=== PATIENT | male | born 1955 | race Native Hawaiian/Other Pacific Islander ===

== ENCOUNTER → 2022-02-09 16:01 | Outpatient (CLI) | payer OTHER, MEDICAID, SELFPAY ==
--- NOTE | 2022-02-09 16:27 | DI.RAD.S_ITS ---
PROCEDURE: XR CHEST 2V INDICATIONS: productive cough TECHNIQUE: 2 views of the chest were acquired. Low lung volumes accentuate pulmonary interstitium and heart size. COMPARISON: None. FINDINGS: Surgical changes and devices: None. Lungs and pleura: Lungs are clear. No pleural effusions or pneumothorax. Mediastinum: Mediastinal contours are normal. Heart size is normal. Bones and chest wall: No suspicious bony abnormalities. Soft tissues appear unremarkable. IMPRESSION: Limited but otherwise unremarkable two view chest x-ray Approved by: Terry Horn M.D. on 02/09/2022 at 16:33
[2022-02-09 17:17] LABS: Influenza A - CEPHEID Flu A NEGATIVE (NEGATIVE); Influenza B - CEPHEID Flu B NEGATIVE (NEGATIVE)
[2022-02-09 17:47] LABS: COVID-19 CEPHEID PCR (VTM/NP) Negative (Negative)
== END ==
PROVIDERS: Visit Provider Student in an Organized Health Care Education/Training Program
DX: R05.8 Other specified cough (principal); R09.89 Other specified symptoms and signs involving the circulatory and respiratory systems
CPT/HCPCS: 0240U; 71046

== ENCOUNTER → 2022-03-18 14:52 | Outpatient (CLI) | payer OTHER, MEDICAID, SELFPAY ==
[2022-03-18 16:23] LABS: Influenza A - CEPHEID Flu A NEGATIVE (NEGATIVE); Influenza B - CEPHEID Flu B NEGATIVE (NEGATIVE); Respiratory Syncytial Virus Negative (Negative)
[2022-03-18 17:00] LABS: COVID-19 CEPHEID 4-PLEX PCR POSITIVE (Negative)
== END ==
PROVIDERS: Visit Provider Nurse Practitioner Family
DX: R05.9 Cough, unspecified (principal)
CPT/HCPCS: 0241U

== ENCOUNTER 2022-10-30 12:16 | Emergency (ER) | payer OTHER, MEDICAID, SELFPAY ==
[2022-10-30 12:37] VITALS: BP 153/94; PULSE 60; RESP 18; TEMP 36.7; O2SAT 99; BMI 32.3
--- NOTE | 2022-10-30 16:03 | PC.NURSE ---
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 The next day he had low back pain radiating into right leg. Today he states his right leg gave out because of the pain and he fell. States he may have hit his head when he fell, no tenderness to head, no loss of consciousness, is not on blood thinners. Reports some pain to right side of neck, tenderness to right trapezius muscle, no midline spine tenderness. Fast exam negative. No weakness or numbness to right leg. Ambulated without difficulty.
--- NOTE | 2022-10-30 16:18 | ED_ITS ---
HPI - Back Pain/Injury General Chief Complaint: Back Pain/Injury Stated Complaint: sent by [facility]/back pain/spasm causing falls Time Seen by Provider: 10/30/22 15:55 Source: patient History of Present Illness HPI Narrative: Patient is a 66-year-old healthy male without known past medical history presenting today with back pain. 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 He recently moved to and [place] as he does not have a primary care provider. 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 Was not too bad and then today or yesterday he slipped on the chair and his back got to be extreme pain. He feels like he has some tingling in his right leg maybe a little bit of weakness. He also feels like he slipped backwards hit his head but not really sure. Really complaining of some neck pain with some radiation on the right side as well. No loss of consciousness no nausea or vomiting. He is only taken Tylenol for pain. He was able to drive himself here. He was previously seen for similar things in the past. Related Data Previous Rx's Medication Instructions Recorded guaifenesin 100 mg/5 mL oral liquid 200 mg (10 mL) PO Q4H PRN cough 02/09/22 #1,000 mL albuterol sulfate 90 mcg/actuation 2 puff inhalation Q6H PRN 03/18/22 aerosol inhaler shortness of breath or wheezing #6.7 grams benzonatate 100 mg capsule 100 mg PO BID PRN cough #20 caps 03/18/22 inhalational spacing device #1 ea 03/18/22 (Aerochamber MV spacer) cyclobenzaprine 5 mg tablet 5 mg PO TID PRN muscle spasm #20 09/10/22 tabs diazepam 5 mg tablet (Valium) 5 mg PO Q12HR PRN muscle spasm #10 10/30/22 tabs hydrocodone 5 mg-acetaminophen 325 1 tab PO Q6H PRN pain #10 tabs 10/30/22 mg tablet Allergies Allergy/AdvReac Type Severity Reaction Status Date / Time No Known Drug Allergies Allergy Unverified 10/30/22 11:31 Review of Systems Review of Systems ROS Unobtainable: All systems reviewed & are unremarkable except as noted in HPI and below Patient History Social History Smoking Status: Never smoker Smoking Status: Never smoker alcohol intake frequency: 0-2 drinks per day Substance Use Type: does not use Exam Initial Vital Signs Initial Vital Signs: Vital Signs Temperature 98.0 F 10/30/22 12:37 Pulse Rate 60 10/30/22 12:37 Respiratory Rate 18 10/30/22 12:37 Blood Pressure 153/94 H 10/30/22 12:37 Pulse Oximetry 99 10/30/22 12:37 Oxygen Delivery Method Room Air 10/30/22 12:37 GENERAL: Alert very pleasant 66-year-old male hard of hearing HEENT: Head atraumatic,EOMI, pupils reactive, face symmetric, moist mucous membranes NECK: Midline vertebral tenderness C2-C3 also some paraspinal muscle tenderness no cervical collar CARDIOVASCULAR: Regular rate and rhythm without murmurs, rubs or gallops. RESPIRATORY: Breath sounds equal bilaterally, no wheezes rales or rhonchi. ABDOMEN: Soft, nontender. Normoactive bowel sounds all 4 quadrants. No guarding or rebound. EXTREMITIES: Normal range of motion, no clubbing or edema. Neurovascularly intact NEUROLOGICAL: Alert and oriented x4. SKIN: Warm, dry, no laceration, no petechiae, no rashes or lesions. Course Orders Ordered: ED Orders 10/30/22 16:29 CT cervical spine wo con Stat Discontinued Medications Diazepam (Diazepam 5 Mg Tablet) 5 mg PO NOW ONE Stop: 10/30/22 15:56 Last Admin: 10/30/22 16:33 Dose: Not Given Documented By: KOREY Ketorolac Tromethamine (Ketorolac 30 Mg/Ml Vial) 30 mg IM NOW ONE Stop: 10/30/22 15:56 Last Admin: 10/30/22 16:40 Dose: 30 mg Documented By: KOREY Vital Signs Vital signs: Vital Signs - 8 hr 10/30/22 12:37 10/30/22 17:47 Temperature 98.0 F Pulse Rate 60 62 Respiratory Rate 18 18 Blood Pressure 153/94 H 147/83 H Pulse Oximetry 99 98 Oxygen Delivery Method Room Air Room Air MDM - Back Pain/Injury Imaging Data CT - cervical spine: Radiologist's Impression: PROCEDURE:? CT CERVICAL SPINE WO CON ? INDICATIONS:? fall pain ? TECHNIQUE:? Noncontrast 3 mm thick sections acquired from the skull base to the T4 level.? Sagittal and coronal reformats were then constructed.? For radiation dose reduction, the following was used:? automated exposure control, adjustment of mA and/or kV according to patient size.? ? COMPARISON:? None. ? FINDINGS:? Image quality:? Good ? Bones:? Moderate to severe degenerative changes.? Ossification of the posterior longitudinal ligament.? No traumatic subluxation.? There is straightening of normal cervical lordosis.? There is lucency through the bridging ligamentous ossifications at C4-C5. ? Soft tissues:? Prevertebral soft tissues are normal thickness.? There is slight hyperdensity in the ventral epidural space at the level C1-C2 (5/47). ? ? IMPRESSION:? Moderate to severe degenerative changes.? Ossification of the PLL, as well as bridging calcifications of the ALL. ? No acute fracture or traumatic subluxation identified. ? Slight hyperdensity in the ventral epidural space at the level C1 or C2.? Differential includes a small epidural hematoma without mass effect. ? Lucency is also seen through to bridging ligamentous ossifications at C4-C5, possibly chronic.? ? If there is sufficient clinical concern, consider MRI to evaluate the above findings. ? Dictated by: Thad Camp M.D. on 10/30/2022 at 17:05 ? ? [facility] Narrative Medical decision making narrative: Patient 66-year-old male overall healthy but has not been to a primary care provider presenting today with musculoskeletal like pain. Initially started lifting someone out of the water and then slipped making back pain even worse. He is very tender in his neck midline with decreased range of motion. CT of the cervical spine is negative. No need for head injury not having head injury symptoms not on any anticoagulation or platelet medication. He is given Toradol here in the ED. He did drive himself will prescribe him muscle relaxers and hydrocodone to go. Discharge Plan Departure Patient Disposition: Home Clinical Impression: Acute back pain with sciatica, Cervical muscle strain Instructions: DI for Whiplash, DI for Back Strain or Sprain Activity Restrictions/Additional Instructions: *You have been diagnosed with back pain with sciatica, cervical strain *What to do: At this time increase activity as tolerated. Light stretching minor activity no strenuous activity no heavy lifting. May require outpatient physical therapy and/or outpatient MRI *Continue to take medications as directed--> [facility] Motrin 600 mg every 6 hours if needed for bnoi-bj-hoeaynhs pain [place] 1 tablet every 6 hours if needed for severe pain Valium 5 mg every 12 hours if needed for muscle spasm *Follow up with your primary care provider in 2-3 days or call [phone] *Return to ER if you should have increased pain weakness loss of urine or any new, worsening or concerning symptoms Prescriptions: New hydrocodone-acetaminophen 5-325 mg tablet 1 tab PO Q6H PRN (Reason: pain) Qty: 10 0RF diazepam [Valium] 5 mg tablet 5 mg PO Q12HR PRN (Reason: muscle spasm) Qty: 10 0RF No Action cyclobenzaprine 5 mg tablet 5 mg PO TID PRN (Reason: muscle spasm) Qty: 20 0RF guaifenesin 100 mg/5 mL liquid 200 mg PO Q4H PRN (Reason: cough) Qty: 1000 0RF (DME) Aerochamber MV Spacer See Rx Instructions .ROUTE .MEDSUPPLY Qty: 1 0RF Rx Instructions: As directed albuterol sulfate 90 mcg/actuation HFA aerosol inhaler 2 puff inhalation Q6H PRN (Reason: shortness of breath or wheezing) Qty: 6.7 0RF benzonatate 100 mg capsule 100 mg PO BID PRN (Reason: cough) Qty: 20 0RF Referrals: Miscellaneous,Doctor, MD [Primary Care Provider] - Stand Alone Forms: Patient Portal/API, Work Release Note
--- NOTE | 2022-10-30 16:29 | DI.CT.S_ITS ---
PROCEDURE: CT CERVICAL SPINE WO CON INDICATIONS: fall pain TECHNIQUE: Noncontrast 3 mm thick sections acquired from the skull base to the T4 level. Sagittal and coronal reformats were then constructed. For radiation dose reduction, the following was used: automated exposure control, adjustment of mA and/or kV according to patient size. COMPARISON: None. FINDINGS: Image quality: Good Bones: Moderate to severe degenerative changes. Ossification of the posterior longitudinal ligament. No traumatic subluxation. There is straightening of normal cervical lordosis. There is lucency through the bridging ligamentous ossifications at C4-C5. Soft tissues: Prevertebral soft tissues are normal thickness. There is slight hyperdensity in the ventral epidural space at the level C1-C2 (5/47). IMPRESSION: Moderate to severe degenerative changes. Ossification of the PLL, as well as bridging calcifications of the ALL. No acute fracture or traumatic subluxation identified. Slight hyperdensity in the ventral epidural space at the level C1 or C2. Differential includes a small epidural hematoma without mass effect. Lucency is also seen through to bridging ligamentous ossifications at C4-C5, possibly chronic. If there is sufficient clinical concern, consider MRI to evaluate the above findings. Dictated by: Thad Camp M.D. on 10/30/2022 at 17:05 Approved by: Thad Camp M.D. on 10/30/2022 at 17:12
[2022-10-30] MEDS: KETOROLAC 30 MG/ML VIAL IM (16:40)
[2022-10-30 17:47] VITALS: BP 147/83; PULSE 62; RESP 18; O2SAT 98
== END 2022-10-30 17:47 | disposition home or self-care (01) ==
PROVIDERS: Emergency Provider Emergency Medicine
DX: M54.41 Lumbago with sciatica, right side (principal); S16.1XXA Strain of muscle, fascia and tendon at neck level, initial encounter; W01.0XXA Fall on same level from slipping, tripping and stumbling without subsequent striking against object, initial encounter
CPT/HCPCS: 72125; 96372; 99283; 99284; J1885

== ENCOUNTER 2022-11-10 13:23 | Emergency (ER) | payer OTHER, SELFPAY ==
[2022-11-10 13:26] VITALS: BP 129/92; PULSE 96; RESP 16; TEMP 36.2; O2SAT 98; BMI 32.3
--- NOTE | 2022-11-10 13:35 | PC.NURSE ---
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 States the pain isn't getting worse, but its not gotten any better. Reports pain in middle lower back radiates down right leg. When the pain increases his right leg gives out and he has almost fallen due to thing. Denies incontinence. Reports best pain relief when he brings his knees up to chest while lying down.
--- NOTE | 2022-11-10 13:39 | DI.MRI.S_ITS ---
PROCEDURE: MR CERVICAL SPINE WO CON INDICATIONS: Right leg numbness, worsening cervical spine pain TECHNIQUE: Noncontrast sagittal T1 spin echo and T2 fast spin echo, sagittal STIR, foraminal oblique sagittal T2 fast spin echo, and axial gradient echo or T2 fast spin echo through the cervical spine. COMPARISON: [facility], MR, MR LUMBAR SPINE WO CON, 11/10/2022, 14:34. [facility], CT, CT CERVICAL SPINE WO CON, 10/30/2022, 16:48. FINDINGS: Image quality: This examination is limited by involuntary motion artifact. Alignment and Curvature: There is normal bony alignment. Bone Marrow: Marrow demonstrates normal overall signal. Spinal Cord: Visualized spinal cord has normal size and signal. No cerebellar tonsillar herniation. Paraspinous Soft Tissues: No paravertebral masses. Prevertebral soft tissues are normal in thickness. C2-C3: Mild loss of disc height is seen. Loss of disc signal is seen. A mild degree of generalized disc osteophyte complex is seen. There is mild right-sided and at least moderate left-sided facet hypertrophy. There is moderate to severe left-sided and moderate right-sided neural foraminal narrowing. Mild to moderate central canal narrowing is seen, with minimal associated mass effect upon the ventral spinal cord. C3-C4: A degree of bony vertebral body fusion can be seen at this level. Moderate generalized disc osteophyte complex is seen. Moderate facet joint hypertrophy is seen. There is moderate right-sided and moderate to severe left-sided neural foraminal narrowing. Moderate central canal narrowing is seen. There is associated mass effect upon the ventral spinal cord. C4-C5: Vfdd-aw-dwkhdipy loss of disc height and disc signal can be seen. At least moderate disc osteophyte complex is seen, which is eccentric to the right. There is at least moderate right-sided and mild left-sided neural foraminal narrowing. There is moderate to severe right-sided and at least moderate left-sided neural foraminal narrowing. Mild to moderate central canal narrowing is seen. There is associated mass effect upon the ventral spinal cord. C5-C6: Mild loss of disc height is seen. Loss of disc signal is seen. A mild to moderate degree of generalized disc osteophyte complex is seen. There is akwh-fa-axbuoace right-sided and moderate left-sided facet hypertrophy. There is moderate left-sided and minimal right-sided neural foraminal narrowing. Moderate central canal narrowing is seen. There is associated mass effect upon the ventral spinal cord. C6-C7: Mild loss of disc height is seen. Loss of disc signal is seen. A mild degree of generalized disc osteophyte complex is seen. Mild to moderate facet hypertrophy is seen. Moderate bilateral neural foraminal narrowing is seen. Mild central canal narrowing is seen. C7-T1: The disc height and disk signal are relatively well-preserved. A mild degree of generalized disc osteophyte complex is seen. Mild facet joint hypertrophy is seen. Moderate bilateral neural foraminal narrowing is seen. Mild central canal narrowing is seen. IMPRESSION: Multiple levels of cervical spine degenerative change can be seen, which are overall worst at C4-C5 and C5-C6. A degree vertebral body fusion is seen at the C3-C4 level, which is better demonstrated by CT. Dictated by: Florian Chang M.D. on 11/10/2022 at 13:54 Approved by: Florian Chang M.D. on 11/10/2022 at 13:59
--- NOTE | 2022-11-10 13:45 | DI.MRI.S_ITS ---
PROCEDURE: MR LUMBAR SPINE WO CON INDICATIONS: Worsening low back pain with right-sided sciatica TECHNIQUE: Noncontrast sagittal T1 spin echo and T2 fast echo, sagittal STIR, and T2 fast spin echo through the lumbar spine. In cases with scoliosis, additional coronal T2 fast spin echo may be performed. COMPARISON: [facility], MR, MR CERVICAL SPINE WO CON, 11/10/2022, 14:20. FINDINGS: Image quality: Excellent. Alignment and Curvature: There is normal bony alignment. Bone Marrow: Marrow is of normal overall signal. No acute vertebral body compression fractures. Spinal Cord: Conus medullaris terminates at the L1 level. Visualized cord demonstrates normal signal and size. Paraspinous Soft Tissues: No paravertebral masses. T12-L1: Normal appearance. L1-L2: The disc height and disk signal are relatively well-preserved. Mild generalized disc bulge is seen. Moderate facet joint hypertrophy is seen. Moderate bilateral neural foraminal narrowing is seen. Mild central canal narrowing is seen. L2-L3: The disc height and disk signal are relatively well-preserved. Mild to moderate disc bulge is seen. Moderate facet joint hypertrophy is seen. Moderate bilateral neural foraminal narrowing is seen. Moderate central canal narrowing is seen. L3-L4: The disc height is well-preserved. Loss of disc signal is seen at this level. Moderate generalized disc bulge is seen. There is a superimposed central disc protrusion. Mild facet joint hypertrophy is seen. There is at least moderate bilateral neural foraminal narrowing seen. Mild to moderate central canal narrowing is seen. L4-L5: Mild loss of disc height is seen. Loss of disc signal is seen. Moderate generalized disc bulge is seen. There is a superimposed central disc protrusion. Moderate to prominent facet hypertrophy is seen at this level. There is moderate to severe bilateral neural foraminal narrowing seen, with an associated a degree of compression seen upon the exiting nerve roots. Moderate central canal narrowing is seen. L5-S1: Moderate loss of disc height is seen. Loss of disc signal is seen. Moderate disc bulge is seen, which is eccentric to the right. Mild to moderate facet hypertrophy is seen. At least moderate bilateral neural foraminal narrowing can be seen. There is a degree of compression seen upon the exiting nerve roots. Mild central canal narrowing is seen. IMPRESSION: Multiple levels of lumbar spine degenerative change can be seen, which are worst inferiorly. Dictated by: Florian Chang M.D. on 11/10/2022 at 13:59 Approved by: Florian Chang M.D. on 11/10/2022 at 14:01
--- NOTE | 2022-11-10 13:46 | ED.BACK ---
HPI - Back Pain/Injury <Ame Lujan, [facility] - Last Filed: 11/10/22 15:33> General Chief Complaint: Back Pain/Injury Stated Complaint: back spasm T-14 Time Seen by Provider: 11/10/22 13:36 Source: patient History of Present Illness HPI Narrative: This is 67-year-old gentleman who presents to the emergency department complaining of worsening low back pain, neck pain and right-sided sciatica since his initial visit to the walk-in clinic and emergency department on 10/30/2022. Patient presented to the walk-in clinic initially for right leg weakness, was sent to the emergency department and was evaluated there and had tenderness along his cervical spine and lower back. He had a CT without contrast of his cervical spine showing moderate to severe degenerative changes, ossification of the PLL as well as calcification of the a LLL, no acute fracture, slight hyperdensity in the ventral epidural space at C1/C2, patient has a traumatic and the differential for the CT scan reported small epidural hematoma with mass effect. Lucency was seen through the bridging ligamentous ossification C4-5 and is probably chronic. Patient complains of worsened pain primarily in his low back with right-sided sciatica with tenderness along his midline lumbar spine. Denies fever, chills, history of IV substance abuse. Patient was treated with Toradol and Valium, did not take any steroids. He complains of neck pain with some radiation on the right side as well.? No recent trauma, states that he slipped and had some acute pain but did not fall down or have any impact. He is only taking Tylenol for pain.? He was able to drive himself here.? 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 Related Data Previous Rx's Medication Instructions Recorded guaifenesin 100 mg/5 mL oral liquid 200 mg (10 mL) PO Q4H PRN cough 02/09/22 #1,000 mL albuterol sulfate 90 mcg/actuation 2 puff inhalation Q6H PRN 03/18/22 aerosol inhaler shortness of breath or wheezing #6.7 grams benzonatate 100 mg capsule 100 mg PO BID PRN cough #20 caps 03/18/22 inhalational spacing device #1 ea 03/18/22 (Aerochamber MV spacer) cyclobenzaprine 5 mg tablet 5 mg PO TID PRN muscle spasm #20 09/10/22 tabs diazepam 5 mg tablet (Valium) 5 mg PO Q12HR PRN muscle spasm #10 10/30/22 tabs hydrocodone 5 mg-acetaminophen 325 1 tab PO Q6H PRN pain #10 tabs 10/30/22 mg tablet gabapentin 100 mg capsule 100 mg PO BEDTIME PRN nerve pain 11/10/22 #14 caps hydrocodone 5 mg-acetaminophen 325 1 tab PO Q6H PRN pain #14 tabs 11/10/22 mg tablet lidocaine 5 % topical patch 1 patch topical DAILY #30 ea 11/10/22 (Lidoderm) methocarbamol 500 mg tablet 500 mg PO BID PRN muscle spasm #20 11/10/22 tabs methylprednisolone 4 mg tablets in See Rx Instructions PO .COMPLEX 11/10/22 a dose pack (Medrol (Kobe)) #21 ea Allergies Allergy/AdvReac Type Severity Reaction Status Date / Time No Known Drug Allergies Allergy Verified 11/10/22 13:26 Review of Systems <LAM Saunders - Last Filed: 11/10/22 15:33> Review of Systems ROS Unobtainable: All systems reviewed & are unremarkable except as noted in HPI and below Patient History <LAM Saunders - Last Filed: 11/10/22 15:33> Social History Smoking Status: Never smoker Smoking Status: Never smoker alcohol intake frequency: 0-2 drinks per day Substance Use Type: does not use Exam <LAM Saunders - Last Filed: 11/10/22 15:33> Narrative Exam Narrative: Reviewed vitals signs and nursing notes. General: Pleasant, sitting upright appears uncomfortable, well groomed, afebrile HEENT: symmetrical facial expressions, moist mucous membranes, neck is supple CV: regular rate and rhythm, warm extremities Respiratory: normal work of breathing, without tachypnea or hypoxia. GI: abdomen soft, nondistended, without CVA tenderness bilaterally. MSK: moves all extremities, no weakness, normal tone, ambulatory without deficit, left leg lift exacerbates low back pain, right leg lift exacerbates low back pain, right-sided sciatica symptoms present, no measured weakness on my exam bilaterally, patient has midline tenderness his mid lumbar spine and reports right-sided sciatica, reflexes are intact without sensory weakness, no grown paresthesia Skin: brisk capillary refill, without rash or wound Neuro: clear speech and normal cognition, A&O x3, GCS 15, no focal motor or sensation deficits Initial Vital Signs Initial Vital Signs: Vital Signs Temperature 97.1 F L 11/10/22 13:26 Pulse Rate 96 H 11/10/22 13:26 Respiratory Rate 16 11/10/22 13:26 Blood Pressure 129/92 H 11/10/22 13:26 Pulse Oximetry 98 11/10/22 13:26 Oxygen Delivery Method Room Air 11/10/22 13:26 <Ginger Bello DO - Last Filed: 11/13/22 19:38> Initial Vital Signs Initial Vital Signs: Vital Signs Temperature 97.1 F L 11/10/22 13:26 Pulse Rate 96 H 11/10/22 13:26 Respiratory Rate 16 11/10/22 13:26 Blood Pressure 129/92 H 11/10/22 13:26 Pulse Oximetry 98 11/10/22 13:26 Oxygen Delivery Method Room Air 11/10/22 13:26 Course <LAM Saunders - Last Filed: 11/10/22 15:33> Orders Ordered: Discontinued Medications Ketorolac Tromethamine (Ketorolac 30 Mg/Ml Vial) 30 mg IM NOW ONE Stop: 11/10/22 13:46 Last Admin: 11/10/22 13:53 Dose: 30 mg Documented By: DANNI Methocarbamol (Methocarbamol 500 Mg Tablet) 500 mg PO NOW ONE Stop: 11/10/22 13:46 Last Admin: 11/10/22 13:54 Dose: 500 mg Documented By: DANNI Pantoprazole Sodium (Pantoprazole Dr 20 Mg Tablet) 20 mg PO NOW ONE Stop: 11/10/22 13:49 Last Admin: 11/10/22 13:54 Dose: 20 mg Documented By: DANNI Prednisone (Prednisone 20 Mg Tablet) 40 mg PO NOW ONE Stop: 11/10/22 13:49 Last Admin: 11/10/22 13:54 Dose: 40 mg Documented By: DANNI Vital Signs Vital signs: Vital Signs - 8 hr 11/10/22 13:26 Temperature 97.1 F L Pulse Rate 96 H Respiratory Rate 16 Blood Pressure 129/92 H Pulse Oximetry 98 Oxygen Delivery Method Room Air <Ginger Bello DO - Last Filed: 11/13/22 19:38> Orders Ordered: Discontinued Medications Ketorolac Tromethamine (Ketorolac 30 Mg/Ml Vial) 30 mg IM NOW ONE Stop: 11/10/22 13:46 Last Admin: 11/10/22 13:53 Dose: 30 mg Documented By: DANNI Methocarbamol (Methocarbamol 500 Mg Tablet) 500 mg PO NOW ONE Stop: 11/10/22 13:46 Last Admin: 11/10/22 13:54 Dose: 500 mg Documented By: DANNI Pantoprazole Sodium (Pantoprazole Dr 20 Mg Tablet) 20 mg PO NOW ONE Stop: 11/10/22 13:49 Last Admin: 11/10/22 13:54 Dose: 20 mg Documented By: DANNI Prednisone (Prednisone 20 Mg Tablet) 40 mg PO NOW ONE Stop: 11/10/22 13:49 Last Admin: 11/10/22 13:54 Dose: 40 mg Documented By: DANNI Vital Signs Vital signs: Vital Signs - 8 hr 11/10/22 13:26 Temperature 97.1 F L Pulse Rate 96 H Respiratory Rate 16 Blood Pressure 129/92 H Pulse Oximetry 98 Oxygen Delivery Method Room Air MDM - Back Pain/Injury <Ame Lujan [facility] - Last Filed: 11/10/22 15:33> Imaging Data MR cervical spine WO contrast: Radiologist's Impression: PROCEDURE:? MR CERVICAL SPINE WO CON ? INDICATIONS:? Right leg numbness, worsening cervical spine pain ? TECHNIQUE:? Noncontrast sagittal T1 spin echo and T2 fast spin echo, sagittal STIR, foraminal oblique sagittal T2 fast spin echo, and axial gradient echo or T2 fast spin echo through the cervical spine.? ? COMPARISON:? [facility], MR, MR LUMBAR SPINE WO CON, 11/10/2022, 14:34.? [facility], CT, CT CERVICAL SPINE WO CON, 10/30/2022, 16:48. ? FINDINGS:? Image quality:? This examination is limited by involuntary motion artifact.? ? Alignment and Curvature:? There is normal bony alignment.? ? Bone Marrow:? Marrow demonstrates normal overall signal.? ? Spinal Cord:? Visualized spinal cord has normal size and signal.? No cerebellar tonsillar herniation.? ? Paraspinous Soft Tissues:? No paravertebral masses.? Prevertebral soft tissues are normal in thickness.? ? C2-C3:? Mild loss of disc height is seen. Loss of disc signal is seen.? A mild degree of generalized disc osteophyte complex is seen.? There is mild right-sided and at least moderate left-sided facet hypertrophy.? There is moderate to severe left-sided and moderate right-sided neural foraminal narrowing.? Mild to moderate central canal narrowing is seen, with minimal associated mass effect upon the ventral spinal cord. ? C3-C4:? A degree of bony vertebral body fusion can be seen at this level. Moderate generalized disc osteophyte complex is seen.? Moderate facet joint hypertrophy is seen.? There is moderate right-sided and moderate to severe left-sided neural foraminal narrowing. Moderate central canal narrowing is seen.? There is associated mass effect upon the ventral spinal cord.? ? C4-C5:? [id number] loss of disc height and disc signal can be seen.? At least moderate disc osteophyte complex is seen, which is eccentric to the right.? There is at least moderate right-sided and mild left-sided neural foraminal narrowing.? There is moderate to severe right-sided and at least moderate left-sided neural foraminal narrowing.? Mild to moderate central canal narrowing is seen. There is associated mass effect upon the ventral spinal cord.? ? C5-C6:? Mild loss of disc height is seen. Loss of disc signal is seen.? A mild to moderate degree of generalized disc osteophyte complex is seen.? There is [id number] right-sided and moderate left-sided facet hypertrophy.? There is moderate left-sided and minimal right-sided neural foraminal narrowing. Moderate central canal narrowing is seen.? There is associated mass effect upon the ventral spinal cord.? ? C6-C7:? Mild loss of disc height is seen. Loss of disc signal is seen.? A mild degree of generalized disc osteophyte complex is seen.? Mild to moderate facet hypertrophy is seen. ?Moderate bilateral neural foraminal narrowing is seen.? Mild central canal narrowing is seen.? ? C7-T1:? The disc height and disk signal are relatively well-preserved.? A mild degree of generalized disc osteophyte complex is seen.? Mild facet joint hypertrophy is seen. Moderate bilateral neural foraminal narrowing is seen.? Mild central canal narrowing is seen.? ? IMPRESSION:? Multiple levels of cervical spine degenerative change can be seen, which are overall worst at C4-C5 and C5-C6. ? A degree vertebral body fusion is seen at the C3-C4 level, which is better demonstrated by CT. ? ? Dictated by: Florian Chang M.D. on 11/10/2022 at 13:54 ? ? Approved by: Florian Chang M.D. on 11/10/2022 at 13:59 ? MR Lumbar spine WO contrast: Radiologist's Impression: PROCEDURE:? MR LUMBAR SPINE WO CON ? INDICATIONS:? Worsening low back pain with right-sided sciatica ? TECHNIQUE:? Noncontrast sagittal T1 spin echo and T2 fast echo, sagittal STIR, and T2 fast spin echo through the lumbar spine.? In cases with scoliosis, additional coronal T2 fast spin echo may be performed.? ? COMPARISON:? [facility], , MR CERVICAL SPINE WO CON, 11/10/2022, 14:20. ? FINDINGS:? Image quality:? Excellent.? ? Alignment and Curvature:? There is normal bony alignment.? ? Bone Marrow:? Marrow is of normal overall signal.? No acute vertebral body compression fractures.? ? Spinal Cord:? Conus medullaris terminates at the L1 level.? Visualized cord demonstrates normal signal and size.? ? Paraspinous Soft Tissues:? No paravertebral masses.? ? T12-L1:? Normal appearance.? ? L1-L2:? The disc height and disk signal are relatively well-preserved.? Mild generalized disc bulge is seen.? Moderate facet joint hypertrophy is seen. Moderate bilateral neural foraminal narrowing is seen.? Mild central canal narrowing is seen.? ? L2-L3:? The disc height and disk signal are relatively well-preserved.? Mild to moderate disc bulge is seen. Moderate facet joint hypertrophy is seen. Moderate bilateral neural foraminal narrowing is seen.? Moderate central canal narrowing is seen.? ? L3-L4:? The disc height is well-preserved.? Loss of disc signal is seen at this level.? Moderate generalized disc bulge is seen. There is a superimposed central disc protrusion. ? Mild facet joint hypertrophy is seen.? There is at least moderate bilateral neural foraminal narrowing seen.? Mild to moderate central canal narrowing is seen. ? L4-L5:? Mild loss of disc height is seen. Loss of disc signal is seen.? Moderate generalized disc bulge is seen. There is a superimposed central disc protrusion. ? Moderate to prominent facet hypertrophy is seen at this level. There is moderate to severe bilateral neural foraminal narrowing seen, with an associated a degree of compression seen upon the exiting nerve roots. Moderate central canal narrowing is seen.? ? ? L5-S1:? Moderate loss of disc height is seen.? Loss of disc signal is seen.? Moderate disc bulge is seen, which is eccentric to the right.? Mild to moderate facet hypertrophy is seen.? At least moderate bilateral neural foraminal narrowing can be seen. There is a degree of compression seen upon the exiting nerve roots.? Mild central canal narrowing is seen.? ? ? IMPRESSION:? Multiple levels of lumbar spine degenerative change can be seen, which are worst inferiorly. ? ? Dictated by: Florian Chang M.D. on 11/10/2022 at 13:59 ? ? Approved by: Florian Chang M.D. on 11/10/2022 at 14:01 ? MDM Narrative Medical decision making narrative: Chief Complaint: low back pain Differential diagnoses considered but not limited to: disc injury/herniation, radiculopathy, muscular strain, epidural abscess, malignancy, spondyloarthropathy, acute fracture, urinary tract infection, osteoarthritis, degenerative disc disease, cauda equina, osteomyelitis, spinal stenosis, ligamental injury. I have reviewed the patient's vital signs and nursing notes as well as prior records if available. Prior Charts reviewed: Emergency department visit from 10/30/2022 as well as the walk-in clinic visit from 10/30/2022 for right leg weakness My interpretation of Imaging: Cervical spine imaging as above from previous visit, today MR of both lumbar and cervical spine due to subjective right-sided weakness and pain Course of care: Ordered MR of his cervical and lumbar spine, pain was treated with prednisone, Toradol, methocarbamol [address] scan, given warm blanket for low back pain and reports feeling much better with this there, he was medicated prior to going 1500 patient reports feeling much better. Suspect likely musculoskeletal etiology and acute exacerbation of chronic low back pain. Patient's straight leg raise test was positive. No back pain red flags on history or physical. No history of IV substance use, or bony tenderness to palpation, no trauma, no bony tenderness to palpation, and are afebrile. No bowel or urinary incontinence or retention, no saddle anesthesia, no new/worsening distal weakness, decreased reflexes or foot drop. Pt is nontoxic appearing. Patient has soft tissue tenderness to palpation. Pt is neurovascularly intact distally, without decreased reflexes or strength, and without immunosuppression or evidence of infection, peritoneal signs, hypertensive crisis, incontinence, or meningeal signs. And I paperwork was completed, he requests 2 weeks off of work due to inability to lift heavy equipment in his pain is still severe. I encouraged him to follow-up with orthopedics in the next week for follow-up on his MRIs and for a referral to physical therapy and or ongoing treatment for his low back abnormality. His L and I claim number is [id number]. Patient's symptoms improved over duration of stay with above-stated therapies. Discharge diagnosis, return precautions and plan discussed with patient followed by verbalization of understanding. Social considerations that may affect disposition: none Questions are addressed and there is agreement with the plan and for follow-up with PCP and with Orthopedics for outpatient physical therapy and advanced imaging if indicated. Patient is appropriate for outpatient management. MIPS: This encounter doesn't have any diagnosis' associated with MIPS criteria. Discharge Plan Departure Patient Disposition: Home Clinical Impression: Work related injury, Central stenosis of spinal canal, Compression of lumbar nerve root Acute back pain with sciatica Qualifiers: Laterality: right Qualified Code(s): M54.41 - Lumbago with sciatica, right side Degenerative disk disease Qualifiers: Spinal region: lumbar Qualified Code(s): M51.36 - Other intervertebral disc degeneration, lumbar region Instructions: DI for Back Pain With Sciatica Activity Restrictions/Additional Instructions: *You have been diagnosed with degenerative disc disease of your lumbar and cervical spine with arthritis, nerve root compression and disc bulge of the lower back disc causing narrowing and compression on the nerve roots. This causes a lot of pain. Please use the steroid to decrease this inflammation of the nerve root which will help with pain, use ibuprofen every 6 hours with food and water as tolerated, use Tums as needed to help coat your stomach. Please take a pain pill as needed for your pain but do not drive afterwards, for muscle spasm and tightening, please take a muscle relaxer which can be helpful for that. I have given you gabapentin which you can take at nighttime to help with the nerve pain. Try to avoid extra physical activity and gradually move your body to prevent become stiff. Please schedule follow-up with orthopedics at [facility] for evaluation of your low back pain with your MRI results. Ask for the soonest available appointment for follow-up from the emergency department after your MRIs. Hope that you start feeling better soon, return to the emergency department for new or worsening pain or mobilities concerns. If you are unable to void or if you have incontinence, if you are unable to have bowel movement, or any other new weakness or other abnormality please come back to emergency department. *What to do: *Please continue to take your regular medications as directed. [X ] New medication prescriptions sent to your pharmacy: [ ] [ ] New medication written as a paper prescription [ ] No new medications given *Please call and schedule follow up with your primary care provider in 2-3 days, at least for an update. Let them know you were seen in the Emergency Department for the above problem. We will electronically transmit a record of today's note if your PCP or specialist is in our system. *If you do not have a primary care provider please contact [phone] to establish care with one of the [facility] primary care providers. *Return to the Emergency Department for worsening symptoms, inability to keep liquids down, fever greater than 101F, chills, or other concerning symptom. Prescriptions: New methylprednisolone [Medrol (Kobe)] 4 mg tablets,dose pack See Rx Instructions .ROUTE .COMPLEX Qty: 21 0RF Rx Instructions: orally per package directions hydrocodone-acetaminophen 5-325 mg tablet 1 tab PO Q6H PRN (Reason: pain) Qty: 14 0RF gabapentin 100 mg capsule 100 mg PO BEDTIME PRN (Reason: nerve pain) Qty: 14 0RF lidocaine [Lidoderm] 5 % adhesive patch,medicated 1 patch topical DAILY Qty: 30 0RF Rx Instructions: leave on most painful area for up to 12 hrs methocarbamol 500 mg tablet 500 mg PO BID PRN (Reason: muscle spasm) Qty: 20 0RF No Action cyclobenzaprine 5 mg tablet 5 mg PO TID PRN (Reason: muscle spasm) Qty: 20 0RF guaifenesin 100 mg/5 mL liquid 200 mg PO Q4H PRN (Reason: cough) Qty: 1000 0RF (DME) Aerochamber MV Spacer See Rx Instructions .ROUTE .MEDSUPPLY Qty: 1 0RF Rx Instructions: As directed albuterol sulfate 90 mcg/actuation HFA aerosol inhaler 2 puff inhalation Q6H PRN (Reason: shortness of breath or wheezing) Qty: 6.7 0RF benzonatate 100 mg capsule 100 mg PO BID PRN (Reason: cough) Qty: 20 0RF hydrocodone-acetaminophen 5-325 mg tablet 1 tab PO Q6H PRN (Reason: pain) Qty: 10 0RF diazepam [Valium] 5 mg tablet 5 mg PO Q12HR PRN (Reason: muscle spasm) Qty: 10 0RF Referrals: [facility] [Provider Group] Grover Hogan DO [Physician] - Stand Alone Forms: Patient Portal/API, Work Release Note <Ginger Bello DO - Last Filed: 11/13/22 19:38> Cosign ED Attending Cosbarature Attestation: I was immediately available in the department for consultation. Documentation has been reviewed.
[2022-11-10] MEDS: KETOROLAC 30 MG/ML VIAL IM (13:53)
[2022-11-10] MEDS: PANTOPRAZOLE DR 20 MG TABLET PO (13:54)
[2022-11-10] MEDS: methocarbamoL 500 MG TABLET PO (13:54)
[2022-11-10] MEDS: predniSONE 20 MG TABLET 40 MG PO (13:54)
[2022-11-10 15:43] VITALS: BP 125/77; PULSE 87; O2SAT 97
== END 2022-11-10 15:50 | disposition home or self-care (01) ==
PROVIDERS: Emergency Provider Nurse Practitioner Critical Care Medicine
DX: M51.36 Other intervertebral disc degeneration, lumbar region (principal); M48.061 Spinal stenosis, lumbar region without neurogenic claudication; M50.30 Other cervical disc degeneration, unspecified cervical region; M51.26 Other intervertebral disc displacement, lumbar region; M54.41 Lumbago with sciatica, right side; Y99.0 Civilian activity done for income or pay
CPT/HCPCS: 72141; 72148; 96372; 99283; 99284; J1885

== ENCOUNTER → 2022-12-29 11:02 | Outpatient (CLI) | payer SELFPAY ==
[2022-12-29 12:53] LABS: Hemoglobin A1C% w Est Avg Glu 5.8 % (4.0-6.0)
[2022-12-29 13:08] LABS: Alanine Aminotransferase 22 IU/L (<50); Albumin 4.3 g/dL (3.5-5.0); Albumin Globulin Ratio 1.4 (1.0-2.8); Alkaline Phosphatase 73 U/L (38-126); Aspartate Aminotransferase 25 IU/L (17-59); Bilirubin Total 0.6 mg/dL (0.2-1.3); Blood Urea Nitrogen 15 mg/dL (9-20); Calcium 9.2 mg/dL (8.4-10.2); Carbon Dioxide 25 mmol/L (22-32); Chloride 105 mmol/L (98-107); Cholesterol 202 mg/dL (140-199); Estimated Glomerular Filt Rate > 60 mL/min (>60); Globulin 3.1 g/dL (1.7-4.1); Glucose 112 mg/dL (80-110); HDL Cholesterol 41 mg/dL (40-60); HEMOLYSIS < 15 (0-50); LDL Cholesterol Calculated 135 mg/dL (<100); Potassium 4.5 mmol/L (3.4-5.1); Sodium 139 mmol/L (137-145); Total Protein 7.4 g/dL (6.3-8.2); Triglycerides 131 mg/dL (35-150)
[2022-12-31 18:33] LABS: HIV 1 & 2 Ab/Ag 4th Gen Combo NEGATIVE (NEGATIVE); Hep C Virus Ab w/Reflex Quant NEGATIVE s/c (NEGATIVE)
== END ==
PROVIDERS: PCP Family Medicine; Referring Provider Family Medicine; Visit Provider Family Medicine
DX: E66.9 Obesity, unspecified (principal); R03.0 Elevated blood-pressure reading, without diagnosis of hypertension; Z11.4 Encounter for screening for human immunodeficiency virus [HIV]; Z11.59 Encounter for screening for other viral diseases
CPT/HCPCS: 36415; 80053; 80061; 83036; 86803; 87389

== ENCOUNTER 2023-02-25 09:00 | Outpatient (RCR) | payer OTHER, SELFPAY ==
--- NOTE | 2022-12-10 13:40 | PT.OIE ---
Current Diagnoses Spinal stenosis, lumbar region without neurogenic claudication (12/10/22) Radiculopathy, lumbar region (12/10/22) Sciatica, right side (12/10/22) Visit Care Team Role Provider Type Doctor MD Elvia Primary Care Provider Non-Staff Specialty: Medical Address: Phone: Fax: Email: Du Rodríguez PA-C Attending Provider Advanced Pricing Consultant Referring Provider Specialty: Orthopedics Orthopedic Surgery Address: [address] [place] [address], [place], [address] Email: [email or web address] Physical Therapy Initial Evaluation PT-OP-A Visit Information Start: 12/10/22 13:23 Freq: Status: Active Protocol: Document 12/10/22 13:23 ED (Rec: 12/10/22 13:40 ED [id number]) Out-Patient Physical Therapy Visit Information Visit Information Visit Type Initial Evaluation Visit Note 05/12 Visit Start Time 12:45 Visit Stop Time 13:30 Total Visit Minutes 45 Visit Number 1 Evaluation Information Evaluation Date 12/10/22 Precautions Precautions hard of hearing (does better c / lower pitched voices) PT-OP-B Current Condition Start: 12/10/22 13:23 Freq: Status: Active Protocol: Document 12/10/22 13:23 ED (Rec: 12/10/22 13:40 ED [id number]) Current Condition History of Current Condition Onset Date October 30, 2022 Current Complaints neck pain History of Current Condition 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 He later went to the ER d/t the amount of pain. He states that his pain is less now but he still has constant pain that limits him. He states that he has difficulty c/ neck movements and is very limited in his ROM . Denies any problems with his arms and shoulders now. MRI revealed degenerative changes. PT-OP-C Subjective Start: 12/10/22 13:23 Freq: Status: Active Protocol: Document 12/10/22 13:23 ED (Rec: 12/10/22 13:40 ED [id number]) OP-PT Subjective Patient Comments Patient Reported Progress Same Patient Questionnaires Oswestry Low Back Index Oswestry Score 80% Oswestry Impairment 80 to 99% Impaired (Score 80- 99) PT-OP-K Range of Motion Start: 12/10/22:23 Freq: Status: Active Protocol: Document 12/10/22 13:23 ED (Rec: 12/10/22 13:40 ED [id number]) Cervical Spine Range of Motion Cervical Spine Active Testing Position Sitting Flexion 15 Extension 10 Rotation Left 30 Rotation Right 20 ROM Limitations Pain Shoulder Goniometric Range of Motion Shoulder Right Active Shoulder ROM WFL Yes Left Active Shoulder ROM WFL Yes PT-OP-L Special Tests Start: 12/10/22:23 Freq: Status: Active Protocol: Document 12/10/22 13:23 ED (Rec: 12/10/22 13:40 ED [id number]) Special Tests Cervical Spine Special Tests Foraminal Compression Test Results + PT-OP-M Strength Start: 12/10/22:23 Freq: Status: Active Protocol: Document 12/10/22 13:23 ED (Rec: 12/10/22 13:40 ED [id number]) Cervical Spine Strength Cervical Spine Manual Muscle Testing Flexion (C1-2) 3- Fair- Extension 4 Good Rotation Left 3- Fair- Rotation Right 3- Fair- PT-OP-Q Treatments Start: 12/10/22 13:23 Freq: Status: Active Protocol: Document 12/10/22 13:23 ED (Rec: 12/10/22 13:40 ED [id number]) Therapeutic Exercises Supine Exercises cervical rotation Side bilateral Reps/Minutes x10 each way Sitting Exercises cervical SNAGs Side bilateral Equipment Used pillow case Reps/Minutes x10 each way thoracic rotation Side bilateral Reps/Minutes x10 Other Exercises cat cow Other Exercise Name quadruped cat cow Reps/Minutes x10 PT-OP-T Assessment and Plan Start: 12/10/22:23 Freq: Status: Active Protocol: Document 12/10/22 13:23 ED (Rec: 12/10/22 13:40 ED [id number]) Physical Therapy Assessment Rehab Potential Rehabilitation Potential Good Evaluation Complexity Number of Personal Factors/Comorbidities 1-2 Number of Body Systems Impaired 3 Clinical Presentation at Evaluation Stable Impairments Impairments Activity Tolerance,Functional Activities,Functional Mobility ,Pain,ROM,Soft Tissue Mobility ,Strength Goals Four Impairment % improvement Short Term Goal (STG) Pt will report 25% improvement in neck and back pain during occupational and recreational activities. STG Duration 3 weeks Detention Goal (LTG) Pt will report 50% ipmrovement in neck and back pain during occupational and recreational activities. LTG Duration 6-8 weeks Three Impairment strength Short Term Goal (STG) Pt will improve cervical strength via MMT to 4/5 in all planes of motion. STG Duration 3 weeks Detention Goal (LTG) Pt will improve cervical strength via MMT to 5/5 in all planes of motion. LTG Duration 6-8 weeks Two Impairment ROM Short Term Goal (STG) Pt will improve cervical rotation to 45 degrees bilaterally STG Duration 3 weeks Hse Coordinator Goal (LTG) Pt will improve cervical rotation to 65 degrees bilaterally. LTG Duration 6 weeks HEP Impairment HEP Short Term Goal (STG) Pt will report performing HEP 3-5 days/week. STG Duration 2 weeks Detention Goal (LTG) Pt will report performing HEP 3-5 days/week. LTG Duration 6 weeks Assessment Summary Assessment Pt reported to PT c/ complaints of cervical and lumbar pain that started at the end of October while at work. Pt demonstrated significantly reduced cervical ROM especially in rotation. Additionally, patient had very poor tolerance during manual muscle test for his cervical region. After a few ROM drills , patient was able to improve rotation ROM by about 10 degrees bilaterally c/ slightly less reported pain. PT will focus on gentle ROM for cervicothoracic spine and then incorporate strengthening within his pain tolerance. Pt provided initial HEP of : cervical SNAGs, supine cervical rotation, cat camels, and seated thoracic rotation which he was able to perform well today. Physical Therapy Plan Frequency and Duration Frequency of Treatment 2x/Week Duration of treatment (weeks) 10 Plan of Care Start Date 12/10/22 Plan of Care End Date 03/10/23 Therapeutic Interventions Therapeutic Interventions Home Exercise Program,Joint Mobilizations,Manual Therapy, Neuromuscular Re-education, Patient/Caregiver Education, Self-Care/Home Management,Soft Tissue Mobilization,Taping, Therapeutic Activities, Therapeutic Exercises Modalities Biofeedback,Cold Pack/Ice Massage,Electric Stimulation, Hot Packs,Ultrasound Next Visit Focus/Plan Next Note Type Treatment Note Next Visit Plan fill out NDI, pulleys, HEP ( snags, supine rotation, cat camel, thoracic rotation), modified noemi pose, rows, lateral raises, shrugs
--- NOTE | 2022-12-10 13:40 | PT.OPPOC ---
Physical, Occupational & Speech Therapy At [facility] Current Diagnoses Spinal stenosis, lumbar region without neurogenic claudication (12/10/22) Radiculopathy, lumbar region (12/10/22) Sciatica, right side (12/10/22) Visit Care Team Role Provider Type Doctor MD Elvia Primary Care Provider Non-Staff Specialty: Medical Address: Phone: Fax: Email: Du Rodríguez PA-C Attending Provider Advanced Compensation Consultant Referring Provider Specialty: Orthopedics Orthopedic Surgery Address: [address] [place] [address], [id number] Email: [email or web address] Plan Of Care PT-OP-T Assessment and Plan Start: 12/10/22 13:23 Freq: Status: Active Protocol: Document 12/10/22 13:23 ED (Rec: 12/10/22 13:40 ED [id number]) Physical Therapy Assessment Rehab Potential Rehabilitation Potential Good Evaluation Complexity Number of Personal Factors/Comorbidities 1-2 Number of Body Systems Impaired 3 Clinical Presentation at Evaluation Stable Impairments Impairments Activity Tolerance,Functional Activities,Functional Mobility ,Pain,ROM,Soft Tissue Mobility ,Strength Goals Four Impairment % improvement Short Term Goal (STG) Pt will report 25% improvement in neck and back pain during occupational and recreational activities. STG Duration 3 weeks Meat Boner Goal (LTG) Pt will report 50% ipmrovement in neck and back pain during occupational and recreational activities. LTG Duration 6-8 weeks Three Impairment strength Short Term Goal (STG) Pt will improve cervical strength via MMT to 4/5 in all planes of motion. STG Duration 3 weeks Meat Boner Goal (LTG) Pt will improve cervical strength via MMT to 5/5 in all planes of motion. LTG Duration 6-8 weeks Two Impairment ROM Short Term Goal (STG) Pt will improve cervical rotation to 45 degrees bilaterally STG Duration 3 weeks Meat Boner Goal (LTG) Pt will improve cervical rotation to 65 degrees bilaterally. LTG Duration 6 weeks HEP Impairment HEP Short Term Goal (STG) Pt will report performing HEP 3-5 days/week. STG Duration 2 weeks Nursing Home Goal (LTG) Pt will report performing HEP 3-5 days/week. LTG Duration 6 weeks Assessment Summary Assessment Pt reported to PT c/ complaints of cervical and lumbar pain that started at the end of October while at work. Pt demonstrated significantly reduced cervical ROM especially in rotation. Additionally, patient had very poor tolerance during manual muscle test for his cervical region. After a few ROM drills , patient was able to improve rotation ROM by about 10 degrees bilaterally c/ slightly less reported pain. PT will focus on gentle ROM for cervicothoracic spine and then incorporate strengthening within his pain tolerance. Pt provided initial HEP of : cervical SNAGs, supine cervical rotation, cat camels, and seated thoracic rotation which he was able to perform well today. Physical Therapy Plan Frequency and Duration Frequency of Treatment 2x/Week Duration of treatment (weeks) 10 Plan of Care Start Date 12/10/22 Plan of Care End Date 03/10/23 Therapeutic Interventions Therapeutic Interventions Home Exercise Program,Joint Mobilizations,Manual Therapy, Neuromuscular Re-education, Patient/Caregiver Education, Self-Care/Home Management,Soft Tissue Mobilization,Taping, Therapeutic Activities, Therapeutic Exercises Modalities Biofeedback,Cold Pack/Ice Massage,Electric Stimulation, Hot Packs,Ultrasound Next Visit Focus/Plan Next Note Type Treatment Note Next Visit Plan fill out NDI, pulleys, HEP ( snags, supine rotation, cat camel, thoracic rotation), modified noemi pose, rows, lateral raises, shrugs Plan of Care Dates Plan of Care Start Date 12/10/22 Plan of Care End Date 03/10/23 Electronically Signed by: Terry Ventura, PT 12/10/22 [id number] If you are in agreement with this Plan of Care, please return a signed and dated copy. I have reviewed this Plan of Care and certify that the skilled therapy services above are required to meet the patient?s needs. Physician Signature Date Printed Name and Credentials Clinical Instructor Signature Printed Name and Credentials
--- NOTE | 2022-12-15 17:33 | PT.OTN ---
Current Diagnoses Spinal stenosis, lumbar region without neurogenic claudication (12/15/22) Radiculopathy, lumbar region (12/15/22) Sciatica, right side (12/15/22) Physical Therapy Treatment Note PT-OP-A Visit Information Start: 12/10/22: Freq: Status: Active Protocol: Document 12/15/22 17:26 ED (Rec: 12/15/22 17:33 ED [id number]) Out-Patient Physical Therapy Visit Information Visit Information Visit Type Treatment Note Visit Note 06/12 Visit Start Time 04:45 Visit Stop Time 05:25 Total Visit Minutes 40 Visit Number 2 PT-OP-B Current Condition Start: 12/10/22: Freq: Status: Active Protocol: Document 12/10/22: ED (Rec: 12/10/22 13:40 ED [id number]) Current Condition History of Current Condition Onset Date October 30, 2022 Current Complaints neck pain History of Current Condition 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 He later went to the ER d/t the amount of pain. He states that his pain is less now but he still has constant pain that limits him. He states that he has difficulty c/ neck movements and is very limited in his ROM . Denies any problems with his arms and shoulders now. MRI revealed degenerative changes. PT-OP-C Subjective Start: 12/10/22:23 Freq: Status: Active Protocol: Document 12/15/22 17:26 ED (Rec: 12/15/22 17:33 ED [id number]) OP-PT Subjective Patient Comments Patient Comments Pt states that he wasn't great about doing his HEP since the evaluation. Is hopeful to do more things for his back. Patient Questionnaires Neck Disability Index NDI Score 25 / 50 Neck Disability Index Impairment 40 to 59% Impaired (Score 20- 29) PT-OP-K Range of Motion Start: 12/10/22:23 Freq: Status: Active Protocol: Document 12/10/22 13:23 ED (Rec: 12/10/22 13:40 ED [id number]) Cervical Spine Range of Motion Cervical Spine Active Testing Position Sitting Flexion 15 Extension 10 Rotation Left 30 Rotation Right 20 ROM Limitations Pain Shoulder Goniometric Range of Motion Shoulder Right Active Shoulder ROM WFL Yes Left Active Shoulder ROM WFL Yes PT-OP-L Special Tests Start: 12/10/22 13:23 Freq: Status: Active Protocol: Document 12/10/22 13:23 ED (Rec: 12/10/22 13:40 ED [id number]) Special Tests Cervical Spine Special Tests Foraminal Compression Test Results + PT-OP-M Strength Start: 12/10/22 13:23 Freq: Status: Active Protocol: Document 12/10/22 13:23 ED (Rec: 12/10/22 13:40 ED [id number]) Cervical Spine Strength Cervical Spine Manual Muscle Testing Flexion (C1-2) 3- Fair- Extension 4 Good Rotation Left 3- Fair- Rotation Right 3- Fair- PT-OP-Q Treatments Start: 12/10/22 13:23 Freq: Status: Active Protocol: Document 12/10/22 13:23 ED (Rec: 12/10/22 13:40 ED [id number]) Therapeutic Exercises Supine Exercises cervical rotation Side bilateral Reps/Minutes x10 each way Sitting Exercises cervical SNAGs Side bilateral Equipment Used pillow case Reps/Minutes x10 each way thoracic rotation Side bilateral Reps/Minutes x10 Other Exercises cat cow Other Exercise Name quadruped cat cow Reps/Minutes x10 PT-OP-T Assessment and Plan Start: 12/10/22 13:23 Freq: Status: Active Protocol: Document 12/15/22 17:26 ED (Rec: 12/15/22 17:33 ED [id number]) Physical Therapy Assessment Goals Four Impairment % improvement Short Term Goal (STG) Pt will report 25% improvement in neck and back pain during occupational and recreational activities. STG Duration 3 weeks Tow Operator Goal (LTG) Pt will report 50% ipmrovement in neck and back pain during occupational and recreational activities. LTG Duration 6-8 weeks Three Impairment strength Short Term Goal (STG) Pt will improve cervical strength via MMT to 4/5 in all planes of motion. STG Duration 3 weeks Senior Living Goal (LTG) Pt will improve cervical strength via MMT to 5/5 in all planes of motion. LTG Duration 6-8 weeks Two Impairment ROM Short Term Goal (STG) Pt will improve cervical rotation to 45 degrees bilaterally STG Duration 3 weeks Tow Operator Goal (LTG) Pt will improve cervical rotation to 65 degrees bilaterally. LTG Duration 6 weeks HEP Impairment HEP Short Term Goal (STG) Pt will report performing HEP 3-5 days/week. STG Duration 2 weeks Tow Operator Goal (LTG) Pt will report performing HEP 3-5 days/week. LTG Duration 6 weeks Assessment Summary Assessment Pt repeated HEP to ensure patient was doing movements appropriately. Pt was able to perform cervical SNAGs, supine cervical rotation, cat camels , and seated thoracic rotation well and c/o additional cues. Pt also performed LTRs, pulleys, and UBE for additional shoulder and spinal mobility drills. Pt able to perform shoulder lateral raises and cable rows c/o any pain. Physical Therapy Plan Frequency and Duration Frequency of Treatment 2x/Week Duration of treatment (weeks) 10 Plan of Care Start Date 12/10/22 Plan of Care End Date 03/10/23 Next Visit Focus/Plan Next Note Type Treatment Note Next Visit Plan fill out NDI, pulleys, HEP ( snags, supine rotation, cat camel, thoracic rotation), modified noemi pose, rows, lateral raises, shrugs
--- NOTE | 2022-12-16 17:04 | PT-OP ANOTE ---
PT left VM for patient for missed visit on 12/16 @ 3551. Reminded patient of next scheduled appointment.
--- NOTE | 2022-12-22 14:16 | PT.OTN ---
Current Diagnoses Spinal stenosis, lumbar region without neurogenic claudication (12/22/22) Radiculopathy, lumbar region (12/22/22) Sciatica, right side (12/22/22) Physical Therapy Treatment Note PT-OP-A Visit Information Start: 12/10/22 13:23 Freq: Status: Active Protocol: Document 12/22/22 14:11 ED (Rec: 12/22/22 14:16 ED [id number]) Out-Patient Physical Therapy Visit Information Visit Information Visit Type Treatment Note Visit Note 07/10 Visit Start Time 13:30 Visit Stop Time 14:10 Total Visit Minutes 40 Visit Number 3 PT-OP-B Current Condition Start: 12/10/22 13:23 Freq: Status: Active Protocol: Document 12/10/22 13:23 ED (Rec: 12/10/22 13:40 ED [id number]) Current Condition History of Current Condition Onset Date October 30, 2022 Current Complaints neck pain History of Current Condition 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 He later went to the ER d/t the amount of pain. He states that his pain is less now but he still has constant pain that limits him. He states that he has difficulty c/ neck movements and is very limited in his ROM . Denies any problems with his arms and shoulders now. MRI revealed degenerative changes. PT-OP-C Subjective Start: 12/10/22 13:23 Freq: Status: Active Protocol: Document 12/22/22 14:11 ED (Rec: 12/22/22 14:16 ED [id number]) OP-PT Subjective Patient Comments Patient Comments Pt states that he wants to work on his back as it is bothering him more than his neck. PT-OP-K Range of Motion Start: 12/10/22 13:23 Freq: Status: Active Protocol: Document 12/10/22 13:23 ED (Rec: 12/10/22 13:40 ED [id number]) Cervical Spine Range of Motion Cervical Spine Active Testing Position Sitting Flexion 15 Extension 10 Rotation Left 30 Rotation Right 20 ROM Limitations Pain Shoulder Goniometric Range of Motion Shoulder Right Active Shoulder ROM WFL Yes Left Active Shoulder ROM WFL Yes PT-OP-L Special Tests Start: 12/10/22 13:23 Freq: Status: Active Protocol: Document 12/10/22 13:23 ED (Rec: 12/10/22 13:40 ED [id number]) Special Tests Cervical Spine Special Tests Foraminal Compression Test Results + PT-OP-M Strength Start: 12/10/22 13:23 Freq: Status: Active Protocol: Document 12/10/22 13:23 ED (Rec: 12/10/22 13:40 ED [id number]) Cervical Spine Strength Cervical Spine Manual Muscle Testing Flexion (C1-2) 3- Fair- Extension 4 Good Rotation Left 3- Fair- Rotation Right 3- Fair- PT-OP-Q Treatments Start: 12/10/22 13:23 Freq: Status: Active Protocol: Document 12/22/22 14:11 ED (Rec: 12/22/22 14:16 ED [id number]) Cardio Equipment Treadmill Duration (Minutes) 8 Speed 2.5 Incline 3.0 Therapeutic Exercises Supine Exercises sciatic nerve glides Reps/Minutes x20 PB rolls Reps/Minutes 2x20 bridge Reps/Minutes 3x10 Comments hands under buttocks to decrease pain Sitting Exercises lumbar flexoin Reps/Minutes x20 Comments UE supported on PB Therapeutic Activity Therapeutic Activity squat Name sit to stand Reps/Minutes 2x10 Comments hugging basketball PT-OP-T Assessment and Plan Start: 12/10/22 13:23 Freq: Status: Active Protocol: Document 12/22/22 14:11 ED (Rec: 12/22/22 14:16 ED [id number]) Physical Therapy Assessment Goals Four Impairment % improvement Short Term Goal (STG) Pt will report 25% improvement in neck and back pain during occupational and recreational activities. STG Duration 3 weeks Harbor Engineer Goal (LTG) Pt will report 50% ipmrovement in neck and back pain during occupational and recreational activities. LTG Duration 6-8 weeks Three Impairment strength Short Term Goal (STG) Pt will improve cervical strength via MMT to 4/5 in all planes of motion. STG Duration 3 weeks Care Home Goal (LTG) Pt will improve cervical strength via MMT to 5/5 in all planes of motion. LTG Duration 6-8 weeks Two Impairment ROM Short Term Goal (STG) Pt will improve cervical rotation to 45 degrees bilaterally STG Duration 3 weeks Care Home Goal (LTG) Pt will improve cervical rotation to 65 degrees bilaterally. LTG Duration 6 weeks HEP Impairment HEP Short Term Goal (STG) Pt will report performing HEP 3-5 days/week. STG Duration 2 weeks Care Home Goal (LTG) Pt will report performing HEP 3-5 days/week. LTG Duration 6 weeks Assessment Summary Assessment Worked on lumbar mobility drills and some gentle strengthening today. Pt able to perform most activities c/ low amounts of pain. Pt did have discomfort during hip bridges but it was reduced when he placed his hands underneath his buttocks. Pt apprehensive during sit<> stands as it is a movement that can be painful when he is at home; he was able to perform them comfortably today . Physical Therapy Plan Frequency and Duration Frequency of Treatment 2x/Week Duration of treatment (weeks) 10 Plan of Care Start Date 12/10/22 Plan of Care End Date 03/10/23 Next Visit Focus/Plan Next Note Type Treatment Note Next Visit Plan TM (brisk), bridges, PB rolls, reverse crunch/crunch, sciatic glides, sit<>stands, elliptical
--- NOTE | 2022-12-25 11:25 | PT.OTN ---
Current Diagnoses Spinal stenosis, lumbar region without neurogenic claudication (12/25/22) Radiculopathy, lumbar region (12/25/22) Sciatica, right side (12/25/22) Physical Therapy Treatment Note PT-OP-A Visit Information Start: 12/10/22 13:23 Freq: Status: Active Protocol: Document 12/25/22 11:19 ED (Rec: 12/25/22 11:25 ED [id number]) Out-Patient Physical Therapy Visit Information Visit Information Visit Type Treatment Note Visit Note 08/10 Visit Start Time 10:45 Visit Stop Time 11:25 Total Visit Minutes 40 Visit Number 4 PT-OP-B Current Condition Start: 12/10/22 13: Freq: Status: Active Protocol: Document 12/10/22 13: ED (Rec: 12/10/22 13:40 ED [id number]) Current Condition History of Current Condition Onset Date October 30, 2022 Current Complaints neck pain History of Current Condition 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 He later went to the ER d/t the amount of pain. He states that his pain is less now but he still has constant pain that limits him. He states that he has difficulty c/ neck movements and is very limited in his ROM . Denies any problems with his arms and shoulders now. MRI revealed degenerative changes. PT-OP-C Subjective Start: 12/10/22:23 Freq: Status: Active Protocol: Document 12/25/22 11:19 ED (Rec: 12/25/22 11:25 ED [id number]) OP-PT Subjective Patient Comments Patient Comments Pt states that he is going to go swimming tomorrow to see if it's a good way for him to exercise and maybe get some relief for his low back pain. Denies any increase in pain after last PT session. PT-OP-K Range of Motion Start: 12/10/22 13:23 Freq: Status: Active Protocol: Document 12/10/22 13:23 ED (Rec: 12/10/22 13:40 ED [id number]) Cervical Spine Range of Motion Cervical Spine Active Testing Position Sitting Flexion 15 Extension 10 Rotation Left 30 Rotation Right 20 ROM Limitations Pain Shoulder Goniometric Range of Motion Shoulder Right Active Shoulder ROM WFL Yes Left Active Shoulder ROM WFL Yes PT-OP-L Special Tests Start: 12/10/22 13:23 Freq: Status: Active Protocol: Document 12/10/22 13:23 ED (Rec: 12/10/22 13:40 ED [id number]) Special Tests Cervical Spine Special Tests Foraminal Compression Test Results + PT-OP-M Strength Start: 12/10/22 13:23 Freq: Status: Active Protocol: Document 12/10/22 13:23 ED (Rec: 12/10/22 13:40 ED [id number]) Cervical Spine Strength Cervical Spine Manual Muscle Testing Flexion (C1-2) 3- Fair- Extension 4 Good Rotation Left 3- Fair- Rotation Right 3- Fair- PT-OP-Q Treatments Start: 12/10/22 13:23 Freq: Status: Active Protocol: Document 12/25/22 11:19 ED (Rec: 12/25/22 11:25 ED [id number]) Cardio Equipment Treadmill Duration (Minutes) 8 Speed 2.5 Incline 3.0 Other @ beginning and end Therapeutic Exercises Supine Exercises LTR Reps/Minutes 2x10 sciatic nerve glides Reps/Minutes x20 PB rolls Reps/Minutes 2x20 bridge Reps/Minutes 3x10 Comments hands under buttocks to decrease pain Sitting Exercises seated good morning Equipment Used dowel Reps/Minutes [id number] lumbar flexoin Reps/Minutes x20 Comments UE supported on PB thoracic rotation Sitting Exercise Name open book Reps/Minutes 1x10 Standing Exercises side bends Standing Exercise Name side bends; knee to lateral knee joint line Reps/Minutes x10 each way Therapeutic Activity Therapeutic Activity squat Name sit to stand Reps/Minutes 2x10 Comments hugging basketball PT-OP-T Assessment and Plan Start: 12/10/22 13:23 Freq: Status: Active Protocol: Document 12/25/22 11:19 ED (Rec: 12/25/22 11:25 ED [id number]) Physical Therapy Assessment Goals Four Impairment % improvement Short Term Goal (STG) Pt will report 25% improvement in neck and back pain during occupational and recreational activities. STG Duration 3 weeks District Wildlife Manager Goal (LTG) Pt will report 50% ipmrovement in neck and back pain during occupational and recreational activities. LTG Duration 6-8 weeks Three Impairment strength Short Term Goal (STG) Pt will improve cervical strength via MMT to 4/5 in all planes of motion. STG Duration 3 weeks Half-Way Goal (LTG) Pt will improve cervical strength via MMT to 5/5 in all planes of motion. LTG Duration 6-8 weeks Two Impairment ROM Short Term Goal (STG) Pt will improve cervical rotation to 45 degrees bilaterally STG Duration 3 weeks Half-Way Goal (LTG) Pt will improve cervical rotation to 65 degrees bilaterally. LTG Duration 6 weeks HEP Impairment HEP Short Term Goal (STG) Pt will report performing HEP 3-5 days/week. STG Duration 2 weeks Half-Way Goal (LTG) Pt will report performing HEP 3-5 days/week. LTG Duration 6 weeks Assessment Summary Assessment Worked on thoracolumbar mobility drills to start session and then progressed to gentle strengthening today via repeated sit<>stands and seated good mornings. Pt able to perform most activities c/ low amounts of pain. Pt did have discomfort during hip bridges but it was reduced when he placed his hands underneath his buttocks. Pt limited in ability to walk on TM at end of session secondary to knee pain and accumulating low back discomfort. Physical Therapy Plan Frequency and Duration Frequency of Treatment 2x/Week Duration of treatment (weeks) 10 Plan of Care Start Date 12/10/22 Plan of Care End Date 03/10/23 Next Visit Focus/Plan Next Note Type Treatment Note Next Visit Plan TM (brisk), bridges, PB rolls, reverse crunch/crunch, sciatic glides, sit<>stands, elliptical
--- NOTE | 2022-12-30 13:35 | PT.OTN ---
Current Diagnoses Spinal stenosis, lumbar region without neurogenic claudication (12/30/22) Radiculopathy, lumbar region (12/30/22) Sciatica, right side (12/30/22) Physical Therapy Treatment Note PT-OP-A Visit Information Start: 12/10/22 13:23 Freq: Status: Active Protocol: Document 12/30/22 13:31 ED (Rec: 12/30/22 13:35 ED [id number]) Out-Patient Physical Therapy Visit Information Visit Information Visit Type Treatment Note Visit Note 09/09 Visit Start Time 12:45 Visit Stop Time 13:30 Total Visit Minutes 45 Visit Number 5 PT-OP-B Current Condition Start: 12/10/22 13:23 Freq: Status: Active Protocol: Document 12/10/22 13: ED (Rec: 12/10/22 13:40 ED [id number]) Current Condition History of Current Condition Onset Date October 30, 2022 Current Complaints neck pain History of Current Condition 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 He later went to the ER d/t the amount of pain. He states that his pain is less now but he still has constant pain that limits him. He states that he has difficulty c/ neck movements and is very limited in his ROM . Denies any problems with his arms and shoulders now. MRI revealed degenerative changes. PT-OP-C Subjective Start: 12/10/22:23 Freq: Status: Active Protocol: Document 12/30/22 13:31 ED (Rec: 12/30/22 13:35 ED [id number]) OP-PT Subjective Patient Comments Patient Comments Pt notes that he was unable to go swimming last weekend d/t scheduling conflict. He wants to try again this weekend. He' s been active at home trying to do home renovations but is limited d/t back pain. PT-OP-K Range of Motion Start: 12/10/22 13:23 Freq: Status: Active Protocol: Document 12/10/22 13:23 ED (Rec: 12/10/22 13:40 ED [id number]) Cervical Spine Range of Motion Cervical Spine Active Testing Position Sitting Flexion 15 Extension 10 Rotation Left 30 Rotation Right 20 ROM Limitations Pain Shoulder Goniometric Range of Motion Shoulder Right Active Shoulder ROM WFL Yes Left Active Shoulder ROM WFL Yes PT-OP-L Special Tests Start: 12/10/22 13:23 Freq: Status: Active Protocol: Document 12/10/22 13:23 ED (Rec: 12/10/22 13:40 ED [id number]) Special Tests Cervical Spine Special Tests Foraminal Compression Test Results + PT-OP-M Strength Start: 12/10/22 13:23 Freq: Status: Active Protocol: Document 12/10/22 13:23 ED (Rec: 12/10/22 13:40 ED [id number]) Cervical Spine Strength Cervical Spine Manual Muscle Testing Flexion (C1-2) 3- Fair- Extension 4 Good Rotation Left 3- Fair- Rotation Right 3- Fair- PT-OP-Q Treatments Start: 12/10/22 13:23 Freq: Status: Active Protocol: Document 12/30/22 13:31 ED (Rec: 12/30/22 13:35 ED [id number]) Cardio Equipment Treadmill Duration (Minutes) 8 Speed 2.5 Incline 3.0 Other @ beginning Therapeutic Exercises Supine Exercises LTR Reps/Minutes 2x10 sciatic nerve glides Reps/Minutes x20 PB rolls Reps/Minutes 2x20 bridge Reps/Minutes 3x10 Comments hands under buttocks to decrease pain Prone Exercises noemi pose Reps/Minutes x5 Comments dynamic pose into press up and back press up Reps/Minutes x60'' hold Sitting Exercises lumbar flexoin Reps/Minutes x20 Comments UE supported on PB Therapeutic Activity Therapeutic Activity bent over row Reps/Minutes 3x5-10 reps Comments 10# weighted dowel; required intermittent rest breaks d/t low back fatigue PT-OP-T Assessment and Plan Start: 12/10/22 13:23 Freq: Status: Active Protocol: Document 12/30/22 13:31 ED (Rec: 12/30/22 13:35 ED [id number]) Physical Therapy Assessment Goals Four Impairment % improvement Short Term Goal (STG) Pt will report 25% improvement in neck and back pain during occupational and recreational activities. STG Duration 3 weeks Skilled Nursing Goal (LTG) Pt will report 50% ipmrovement in neck and back pain during occupational and recreational activities. LTG Duration 6-8 weeks Three Impairment strength Short Term Goal (STG) Pt will improve cervical strength via MMT to 4/5 in all planes of motion. STG Duration 3 weeks Skilled Nursing Goal (LTG) Pt will improve cervical strength via MMT to 5/5 in all planes of motion. LTG Duration 6-8 weeks Two Impairment ROM Short Term Goal (STG) Pt will improve cervical rotation to 45 degrees bilaterally STG Duration 3 weeks Crochet Beader Goal (LTG) Pt will improve cervical rotation to 65 degrees bilaterally. LTG Duration 6 weeks HEP Impairment HEP Short Term Goal (STG) Pt will report performing HEP 3-5 days/week. STG Duration 2 weeks Crochet Beader Goal (LTG) Pt will report performing HEP 3-5 days/week. LTG Duration 6 weeks Assessment Summary Assessment Worked on thoracolumbar mobility drills to start session and then progressed to gentle strengthening today via bent over row. Pt able to perform most activities c/ low amounts of pain. Pt did have discomfort during hip bridges but it was reduced when he placed his hands underneath his buttocks. Pt Physical Therapy Plan Next Visit Focus/Plan Next Note Type Treatment Note Next Visit Plan TM (brisk), bridges, PB rolls, reverse crunch/crunch, sciatic glides, sit<>stands, bent over row, tracy curl, elliptical
--- NOTE | 2023-01-01 13:18 | PT.OTN ---
Current Diagnoses Spinal stenosis, lumbar region without neurogenic claudication (01/01/23) Radiculopathy, lumbar region (01/01/23) Sciatica, right side (01/01/23) Physical Therapy Treatment Note PT-OP-A Visit Information Start: 12/10/22 13:23 Freq: Status: Active Protocol: Document 01/01/23 13:15 ED (Rec: 01/01/23 13:18 ED [id number]) Out-Patient Physical Therapy Visit Information Visit Information Visit Type Treatment Note Visit Note 10/10 Visit Start Time 12:45 Visit Stop Time 13:15 Total Visit Minutes 30 Visit Number 6 PT-OP-B Current Condition Start: 12/10/22 13:23 Freq: Status: Active Protocol: Document 12/10/22 13:23 ED (Rec: 12/10/22 13:40 ED [id number]) Current Condition History of Current Condition Onset Date October 30, 2022 Current Complaints neck pain History of Current Condition 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 He later went to the ER d/t the amount of pain. He states that his pain is less now but he still has constant pain that limits him. He states that he has difficulty c/ neck movements and is very limited in his ROM . Denies any problems with his arms and shoulders now. MRI revealed degenerative changes. PT-OP-C Subjective Start: 12/10/22:23 Freq: Status: Active Protocol: Document 01/01/23 13:15 ED (Rec: 01/01/23 13:18 ED [id number]) OP-PT Subjective Patient Comments Patient Comments Pt states that he needs to leave a little earlier today. Pt is going to try to go swimming tomorrow but may not be able to. PT-OP-K Range of Motion Start: 12/10/22 13:23 Freq: Status: Active Protocol: Document 12/10/22 13:23 ED (Rec: 12/10/22 13:40 ED [id number]) Cervical Spine Range of Motion Cervical Spine Active Testing Position Sitting Flexion 15 Extension 10 Rotation Left 30 Rotation Right 20 ROM Limitations Pain Shoulder Goniometric Range of Motion Shoulder Right Active Shoulder ROM WFL Yes Left Active Shoulder ROM WFL Yes PT-OP-L Special Tests Start: 12/10/22 13:23 Freq: Status: Active Protocol: Document 12/10/22 13:23 ED (Rec: 12/10/22 13:40 ED [id number]) Special Tests Cervical Spine Special Tests Foraminal Compression Test Results + PT-OP-M Strength Start: 12/10/22 13:23 Freq: Status: Active Protocol: Document 12/10/22 13:23 ED (Rec: 12/10/22 13:40 ED [id number]) Cervical Spine Strength Cervical Spine Manual Muscle Testing Flexion (C1-2) 3- Fair- Extension 4 Good Rotation Left 3- Fair- Rotation Right 3- Fair- PT-OP-Q Treatments Start: 12/10/22 13:23 Freq: Status: Active Protocol: Document 01/01/23 13:15 ED (Rec: 01/01/23 13:18 ED [id number]) Cardio Equipment Treadmill Duration (Minutes) 8 Speed 2.5 Incline 3.0 Other @ beginning Therapeutic Exercises Supine Exercises LTR Reps/Minutes 2x10 sciatic nerve glides Reps/Minutes x20 PB rolls Reps/Minutes 2x20 Sitting Exercises lumbar flexoin Reps/Minutes x20 Comments UE supported on PB Therapeutic Activity Therapeutic Activity bent over row Reps/Minutes 3x5-10 reps Comments 10# weighted dowel; required intermittent rest breaks d/t low back fatigue PT-OP-T Assessment and Plan Start: 12/10/22 13:23 Freq: Status: Active Protocol: Document 01/01/23 13:15 ED (Rec: 01/01/23 13:18 ED [id number]) Physical Therapy Assessment Goals Four Impairment % improvement Short Term Goal (STG) Pt will report 25% improvement in neck and back pain during occupational and recreational activities. STG Duration 3 weeks Environmental Communications Specialist Goal (LTG) Pt will report 50% ipmrovement in neck and back pain during occupational and recreational activities. LTG Duration 6-8 weeks Three Impairment strength Short Term Goal (STG) Pt will improve cervical strength via MMT to 4/5 in all planes of motion. STG Duration 3 weeks [facility] Goal (LTG) Pt will improve cervical strength via MMT to 5/5 in all planes of motion. LTG Duration 6-8 weeks Two Impairment ROM Short Term Goal (STG) Pt will improve cervical rotation to 45 degrees bilaterally STG Duration 3 weeks Environmental Communications Specialist Goal (LTG) Pt will improve cervical rotation to 65 degrees bilaterally. LTG Duration 6 weeks HEP Impairment HEP Short Term Goal (STG) Pt will report performing HEP 3-5 days/week. STG Duration 2 weeks [facility] Goal (LTG) Pt will report performing HEP 3-5 days/week. LTG Duration 6 weeks Assessment Summary Assessment Pt able to go through lumbopelvic mobility drills in beginning of session c/ minimal complaints of discomfort. Pt had quick, sharp pain during repeated sit <>stands today but only for a moment. Pt easily fatigued by bent over rows requiring long isometric hold of thoracolumbar extensor muscles so PT will continue to work on endurance for thoracolumbar extensor muscles. Physical Therapy Plan Frequency and Duration Frequency of Treatment 2x/Week Duration of treatment (weeks) 10 Plan of Care Start Date 12/10/22 Plan of Care End Date 03/10/23 Next Visit Focus/Plan Next Note Type Treatment Note Next Visit Plan TM (brisk), bridges, PB rolls, reverse crunch/crunch, sciatic glides, sit<>stands, bent over row, tracy curl, elliptical
--- NOTE | 2023-01-06 13:29 | PT.OTN ---
Current Diagnoses Spinal stenosis, lumbar region without neurogenic claudication (01/06/23) Radiculopathy, lumbar region (01/06/23) Sciatica, right side (01/06/23) Physical Therapy Treatment Note PT-OP-A Visit Information Start: 12/10/22 13:23 Freq: Status: Active Protocol: Document 01/06/23 13:24 ED (Rec: 01/06/23 13:29 ED [id number]) Out-Patient Physical Therapy Visit Information Visit Information Visit Type Treatment Note Visit Note 11/09 Visit Start Time 12:45 Visit Stop Time 13:25 Total Visit Minutes 40 Visit Number 7 PT-OP-B Current Condition Start: 12/10/22 13:23 Freq: Status: Active Protocol: Document 12/10/22 13:23 ED (Rec: 12/10/22 13:40 ED [id number]) Current Condition History of Current Condition Onset Date October 30, 2022 Current Complaints neck pain History of Current Condition 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 He later went to the ER d/t the amount of pain. He states that his pain is less now but he still has constant pain that limits him. He states that he has difficulty c/ neck movements and is very limited in his ROM . Denies any problems with his arms and shoulders now. MRI revealed degenerative changes. PT-OP-C Subjective Start: 12/10/22 13:23 Freq: Status: Active Protocol: Document 01/06/23 13:24 ED (Rec: 01/06/23 13:29 ED [id number]) OP-PT Subjective Patient Comments Patient Comments Pt states that he is noticing small improvements in his low back pain. States the continues to have the intense spasms in his back but it's less frequent. PT-OP-K Range of Motion Start: 12/10/22 13:23 Freq: Status: Active Protocol: Document 12/10/22 13:23 ED (Rec: 12/10/22 13:40 ED [id number]) Cervical Spine Range of Motion Cervical Spine Active Testing Position Sitting Flexion 15 Extension 10 Rotation Left 30 Rotation Right 20 ROM Limitations Pain Shoulder Goniometric Range of Motion Shoulder Right Active Shoulder ROM WFL Yes Left Active Shoulder ROM WFL Yes PT-OP-L Special Tests Start: 12/10/22 13:23 Freq: Status: Active Protocol: Document 12/10/22 13:23 ED (Rec: 12/10/22 13:40 ED [id number]) Special Tests Cervical Spine Special Tests Foraminal Compression Test Results + PT-OP-M Strength Start: 12/10/22 13:23 Freq: Status: Active Protocol: Document 12/10/22 13:23 ED (Rec: 12/10/22 13:40 ED [id number]) Cervical Spine Strength Cervical Spine Manual Muscle Testing Flexion (C1-2) 3- Fair- Extension 4 Good Rotation Left 3- Fair- Rotation Right 3- Fair- PT-OP-Q Treatments Start: 12/10/22 13:23 Freq: Status: Active Protocol: Document 01/06/23 13:24 ED (Rec: 01/06/23 13:29 ED [id number]) Cardio Equipment Treadmill Duration (Minutes) 8 Speed 2.5 Incline 3.0 Other @ beginning Therapeutic Exercises Supine Exercises LTR Reps/Minutes 2x10 sciatic nerve glides Reps/Minutes x20 PB rolls Reps/Minutes 2x20 bridge Reps/Minutes 3x10 Comments hands under buttocks to decrease pain Sitting Exercises Ruben curl Sitting Exercise Name ruben curl Resistance L2 Equipment Used cable on floor Reps/Minutes 2x15 lumbar flexoin Reps/Minutes x20 Comments UE supported on PB Other Exercises banded walk Other Exercise Name lateral stepping Resistance green loop Reps/Minutes 1x15' pick the fragoso Reps/Minutes 1x6/leg Therapeutic Activity Therapeutic Activity squat Name STS low bench Reps/Minutes 3x15 Comments 10# PT-OP-T Assessment and Plan Start: 12/10/22 13:23 Freq: Status: Active Protocol: Document 01/06/23 13:24 ED (Rec: 01/06/23 13:29 ED [id number]) Physical Therapy Assessment Goals Four Impairment % improvement Short Term Goal (STG) Pt will report 25% improvement in neck and back pain during occupational and recreational activities. STG Duration 3 weeks Manager Internet Goal (LTG) Pt will report 50% ipmrovement in neck and back pain during occupational and recreational activities. LTG Duration 6-8 weeks Three Impairment strength Short Term Goal (STG) Pt will improve cervical strength via MMT to 4/5 in all planes of motion. STG Duration 3 weeks Longterm Goal (LTG) Pt will improve cervical strength via MMT to 5/5 in all planes of motion. LTG Duration 6-8 weeks Two Impairment ROM Short Term Goal (STG) Pt will improve cervical rotation to 45 degrees bilaterally STG Duration 3 weeks Manager Internet Goal (LTG) Pt will improve cervical rotation to 65 degrees bilaterally. LTG Duration 6 weeks HEP Impairment HEP Short Term Goal (STG) Pt will report performing HEP 3-5 days/week. STG Duration 2 weeks Manager Internet Goal (LTG) Pt will report performing HEP 3-5 days/week. LTG Duration 6 weeks Assessment Summary Assessment Pt is tolerating treatments well which have slowly ramped in regards to intensity c/ modifications of total ROM, reps and sets volume, or resistance used. Pt does occasionally have random spasm in back that is painful for him but it is difficult to guage when that will occur. Physical Therapy Plan Frequency and Duration Frequency of Treatment 2x/Week Duration of treatment (weeks) 10 Plan of Care Start Date 12/10/22 Plan of Care End Date 03/10/23 Next Visit Focus/Plan Next Note Type Treatment Note Next Visit Plan TM (brisk), bridges, PB rolls, reverse crunch/crunch, side plank, press up, hip extension sciatic glides, elliptical sit<>stands, bent over row, ruben curl, elliptical
--- NOTE | 2023-01-07 09:04 | PT.OTN ---
Current Diagnoses Spinal stenosis, lumbar region without neurogenic claudication (01/07/23) Radiculopathy, lumbar region (01/07/23) Sciatica, right side (01/07/23) Physical Therapy Treatment Note PT-OP-A Visit Information Start: 12/10/22 13:23 Freq: Status: Active Protocol: Document 01/07/23 09:00 ED (Rec: 01/07/23 09:04 ED [id number]) Out-Patient Physical Therapy Visit Information Visit Information Visit Type Treatment Note Visit Note 12/10 Visit Start Time 08:15 Visit Stop Time 09:00 Total Visit Minutes 45 Visit Number 8 PT-OP-B Current Condition Start: 12/10/22 13:23 Freq: Status: Active Protocol: Document 12/10/22 13:23 ED (Rec: 12/10/22 13:40 ED [id number]) Current Condition History of Current Condition Onset Date October 30, 2022 Current Complaints neck pain History of Current Condition 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 He later went to the ER d/t the amount of pain. He states that his pain is less now but he still has constant pain that limits him. He states that he has difficulty c/ neck movements and is very limited in his ROM . Denies any problems with his arms and shoulders now. MRI revealed degenerative changes. PT-OP-C Subjective Start: 12/10/22 13:23 Freq: Status: Active Protocol: Document 01/07/23 09:00 ED (Rec: 01/07/23 09:04 ED [id number]) OP-PT Subjective Patient Comments Patient Comments Pt states that he would like to switch between low back days and cervical focused days . States he has not been doing much of his neck exercises recently. PT-OP-K Range of Motion Start: 12/10/22 13:23 Freq: Status: Active Protocol: Document 12/10/22 13:23 ED (Rec: 12/10/22 13:40 ED [id number]) Cervical Spine Range of Motion Cervical Spine Active Testing Position Sitting Flexion 15 Extension 10 Rotation Left 30 Rotation Right 20 ROM Limitations Pain Shoulder Goniometric Range of Motion Shoulder Right Active Shoulder ROM WFL Yes Left Active Shoulder ROM WFL Yes PT-OP-L Special Tests Start: 12/10/22 13:23 Freq: Status: Active Protocol: Document 12/10/22 13:23 ED (Rec: 12/10/22 13:40 ED [id number]) Special Tests Cervical Spine Special Tests Foraminal Compression Test Results + PT-OP-M Strength Start: 12/10/22 13:23 Freq: Status: Active Protocol: Document 12/10/22 13:23 ED (Rec: 12/10/22 13:40 ED [id number]) Cervical Spine Strength Cervical Spine Manual Muscle Testing Flexion (C1-2) 3- Fair- Extension 4 Good Rotation Left 3- Fair- Rotation Right 3- Fair- PT-OP-Q Treatments Start: 12/10/22 13:23 Freq: Status: Active Protocol: Document 01/07/23 09:00 ED (Rec: 01/07/23 09:04 ED [id number]) Cardio Equipment Elliptical Duration (Minutes) 6 Resistance 6 Therapeutic Exercises Supine Exercises LTR Reps/Minutes 2x10 sciatic nerve glides Reps/Minutes x20 PB rolls Reps/Minutes 2x20 cervical rotation Supine Exercise Name quadruped + chin tuck Reps/Minutes [address] Prone Exercises noemi pose Reps/Minutes x10 press up Reps/Minutes x10 Sitting Exercises PB bounces Reps/Minutes x1' lumbar flexoin Reps/Minutes x20 Comments UE supported on PB Standing Exercises lat pull down Resistance L5 Equipment Used cable Comments with hip extension in sitting child pose <> hip extension Reps/Minutes 2x10 Other Exercises kneeling rotation Other Exercise Name 1/2 kneeling t-spine rotation Reps/Minutes x10 ea PT-OP-T Assessment and Plan Start: 12/10/22 13:23 Freq: Status: Active Protocol: Document 01/07/23 09:00 ED (Rec: 01/07/23 09:04 ED [id number]) Physical Therapy Assessment Goals Four Impairment % improvement Short Term Goal (STG) Pt will report 25% improvement in neck and back pain during occupational and recreational activities. STG Duration 3 weeks Sprinkler Tender Goal (LTG) Pt will report 50% ipmrovement in neck and back pain during occupational and recreational activities. LTG Duration 6-8 weeks Three Impairment strength Short Term Goal (STG) Pt will improve cervical strength via MMT to 4/5 in all planes of motion. STG Duration 3 weeks Sprinkler Tender Goal (LTG) Pt will improve cervical strength via MMT to 5/5 in all planes of motion. LTG Duration 6-8 weeks Two Impairment ROM Short Term Goal (STG) Pt will improve cervical rotation to 45 degrees bilaterally STG Duration 3 weeks Fdc Goal (LTG) Pt will improve cervical rotation to 65 degrees bilaterally. LTG Duration 6 weeks HEP Impairment HEP Short Term Goal (STG) Pt will report performing HEP 3-5 days/week. STG Duration 2 weeks Sprinkler Tender Goal (LTG) Pt will report performing HEP 3-5 days/week. LTG Duration 6 weeks Assessment Summary Assessment Pt measured at 20-25 degrees cervical rotation. Provided patient c/ new HEP of quadruped chin tucks, quadruped cervical rotation, press ups, and noemi pose. Pt demonstrating directional preference into flexion for lumbar spine. Physical Therapy Plan Frequency and Duration Frequency of Treatment 2x/Week Duration of treatment (weeks) 10 Plan of Care Start Date 12/10/22 Plan of Care End Date 03/10/23 Next Visit Focus/Plan Next Note Type Treatment Note Next Visit Plan TM (brisk), bridges, PB rolls, reverse crunch/crunch, side plank, press up, hip extension sciatic glides, elliptical 1/2 kneeling rotation, PB bounces, sit<>stands, bent over row, tracy curl, elliptical
--- NOTE | 2023-01-12 08:16 | PT.OTN ---
Current Diagnoses Spinal stenosis, lumbar region without neurogenic claudication (01/12/23) Radiculopathy, lumbar region (01/12/23) Sciatica, right side (01/12/23) Physical Therapy Treatment Note PT-OP-A Visit Information Start: 12/10/22 13:23 Freq: Status: Active Protocol: Document 01/12/23 08:12 ED (Rec: 01/12/23 08:16 ED [id number]) Out-Patient Physical Therapy Visit Information Visit Information Visit Type Treatment Note Visit Note 01/10 Visit Start Time 07:30 Visit Stop Time 08:10 Total Visit Minutes 40 Visit Number 9 PT-OP-B Current Condition Start: 12/10/22 13:23 Freq: Status: Active Protocol: Document 12/10/22 13:23 ED (Rec: 12/10/22 13:40 ED [id number]) Current Condition History of Current Condition Onset Date October 30, 2022 Current Complaints neck pain History of Current Condition 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 He later went to the ER d/t the amount of pain. He states that his pain is less now but he still has constant pain that limits him. He states that he has difficulty c/ neck movements and is very limited in his ROM . Denies any problems with his arms and shoulders now. MRI revealed degenerative changes. PT-OP-C Subjective Start: 12/10/22 13:23 Freq: Status: Active Protocol: Document 01/12/23 08:12 ED (Rec: 01/12/23 08:16 ED [id number]) OP-PT Subjective Patient Comments Patient Comments Pt states that his low back is feeling better but still is having neck pain. He does occasionally have moments of back pain most often when changing positions. PT-OP-K Range of Motion Start: 12/10/22 13:23 Freq: Status: Active Protocol: Document 12/10/22 13:23 ED (Rec: 12/10/22 13:40 ED [id number]) Cervical Spine Range of Motion Cervical Spine Active Testing Position Sitting Flexion 15 Extension 10 Rotation Left 30 Rotation Right 20 ROM Limitations Pain Shoulder Goniometric Range of Motion Shoulder Right Active Shoulder ROM WFL Yes Left Active Shoulder ROM WFL Yes PT-OP-L Special Tests Start: 12/10/22 13:23 Freq: Status: Active Protocol: Document 12/10/22 13:23 ED (Rec: 12/10/22 13:40 ED [id number]) Special Tests Cervical Spine Special Tests Foraminal Compression Test Results + PT-OP-M Strength Start: 12/10/22 13:23 Freq: Status: Active Protocol: Document 12/10/22 13:23 ED (Rec: 12/10/22 13:40 ED [id number]) Cervical Spine Strength Cervical Spine Manual Muscle Testing Flexion (C1-2) 3- Fair- Extension 4 Good Rotation Left 3- Fair- Rotation Right 3- Fair- PT-OP-Q Treatments Start: 12/10/22 13:23 Freq: Status: Active Protocol: Document 01/12/23 08:12 ED (Rec: 01/12/23 08:16 ED [id number]) Cardio Equipment Elliptical Duration (Minutes) 6 Resistance 6 Therapeutic Exercises Supine Exercises LTR Reps/Minutes 2x10 bridge Reps/Minutes 3x10 Comments hands under buttocks to decrease pain Sitting Exercises PB bounces Reps/Minutes x1' Ruben curl Sitting Exercise Name ruben curl Resistance L2 Equipment Used cable on floor Reps/Minutes 2x15 lumbar flexoin Reps/Minutes x20 Comments UE supported on PB Standing Exercises child pose <> hip extension Reps/Minutes 2x10 Other Exercises kneeling rotation Other Exercise Name 1/2 kneeling t-spine rotation Reps/Minutes x10 ea cat cow Reps/Minutes x10 Therapeutic Activity Therapeutic Activity bent over row Reps/Minutes 3x5-10 reps Comments 10# weighted dowel; required intermittent rest breaks d/t low back fatigue PT-OP-T Assessment and Plan Start: 12/10/22 13:23 Freq: Status: Active Protocol: Document 01/12/23 08:12 ED (Rec: 01/12/23 08:16 ED [id number]) Physical Therapy Assessment Goals Four Impairment % improvement Short Term Goal (STG) Pt will report 25% improvement in neck and back pain during occupational and recreational activities. STG Duration 3 weeks Solid Glass Rod Dowel Machine Operator Goal (LTG) Pt will report 50% ipmrovement in neck and back pain during occupational and recreational activities. LTG Duration 6-8 weeks Three Impairment strength Short Term Goal (STG) Pt will improve cervical strength via MMT to 4/5 in all planes of motion. STG Duration 3 weeks Usp Goal (LTG) Pt will improve cervical strength via MMT to 5/5 in all planes of motion. LTG Duration 6-8 weeks Two Impairment ROM Short Term Goal (STG) Pt will improve cervical rotation to 45 degrees bilaterally STG Duration 3 weeks Usp Goal (LTG) Pt will improve cervical rotation to 65 degrees bilaterally. LTG Duration 6 weeks HEP Impairment HEP Short Term Goal (STG) Pt will report performing HEP 3-5 days/week. STG Duration 2 weeks Usp Goal (LTG) Pt will report performing HEP 3-5 days/week. LTG Duration 6 weeks Assessment Summary Assessment Pt is tolerating treatments well which have slowly ramped in regards to intensity c/ modifications of total ROM, reps and sets volume, or resistance used. Pt continues to have flexion directional preference and has discomfort during lumbar extension. Physical Therapy Plan Frequency and Duration Frequency of Treatment 2x/Week Duration of treatment (weeks) 10 Plan of Care Start Date 12/10/22 Plan of Care End Date 03/10/23 Next Visit Focus/Plan Next Note Type Progress Note Next Visit Plan Oswestry, NDI, neck exercises
--- NOTE | 2023-01-15 16:04 | PT.OTN ---
Current Diagnoses Spinal stenosis, lumbar region without neurogenic claudication (01/15/23) Radiculopathy, lumbar region (01/15/23) Sciatica, right side (01/15/23) Physical Therapy Treatment Note PT-OP-A Visit Information Start: 12/10/22: Freq: Status: Active Protocol: Document 01/15/23 15:55 ED (Rec: 01/15/23 16:03 ED [id number]) Out-Patient Physical Therapy Visit Information Visit Information Visit Type Progress Note Visit Note 02/09 Visit Start Time 15:10 Visit Stop Time 15:55 Total Visit Minutes 45 Visit Number 10 PT-OP-B Current Condition Start: 12/10/22: Freq: Status: Active Protocol: Document 12/10/22: ED (Rec: 12/10/22 13:40 ED [id number]) Current Condition History of Current Condition Onset Date October 30, 2022 Current Complaints neck pain History of Current Condition 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 He later went to the ER d/t the amount of pain. He states that his pain is less now but he still has constant pain that limits him. He states that he has difficulty c/ neck movements and is very limited in his ROM . Denies any problems with his arms and shoulders now. MRI revealed degenerative changes. PT-OP-C Subjective Start: 12/10/22 Freq: Status: Active Protocol: Document 01/15/23 15:55 ED (Rec: 01/15/23 16:03 ED [id number]) OP-PT Subjective Patient Comments Patient Comments Pt feels like his low back pain is improving; he notices less intense pain and less frequent spasms of his muscles in his low back. His neck continues to be bothersome and feels really tight and restricted. Patient Questionnaires Neck Disability Index NDI Score 25/50 Neck Disability Index Impairment 40 to 59% Impaired (Score 20- 29) Oswestry Low Back Index Oswestry Score 25 / 50 = 50.0 % Oswestry Impairment 40 to 59% Impaired (Score 40- 59) PT-OP-K Range of Motion Start: 12/10/22:23 Freq: Status: Active Protocol: Document 01/15/23 15:55 ED (Rec: 01/15/23 16:03 ED [id number]) Cervical Spine Range of Motion Cervical Spine Active Testing Position Sitting Flexion 30 Extension 15 Rotation Left 20 Rotation Right 30 PT-OP-L Special Tests Start: 12/10/22 13:23 Freq: Status: Active Protocol: Document 12/10/22 13:23 ED (Rec: 12/10/22 13:40 ED [id number]) Special Tests Cervical Spine Special Tests Foraminal Compression Test Results + PT-OP-M Strength Start: 12/10/22 13:23 Freq: Status: Active Protocol: Document 12/10/22 13:23 ED (Rec: 12/10/22 13:40 ED [id number]) Cervical Spine Strength Cervical Spine Manual Muscle Testing Flexion (C1-2) 3- Fair- Extension 4 Good Rotation Left 3- Fair- Rotation Right 3- Fair- PT-OP-Q Treatments Start: 12/10/22 13:23 Freq: Status: Active Protocol: Document 01/15/23 15:55 ED (Rec: 01/15/23 16:03 ED [id number]) Therapeutic Exercises Supine Exercises cervical rotation Supine Exercise Name quadruped + chin tuck Reps/Minutes [address] Sitting Exercises cervical SNAGs Side bilateral Equipment Used pillow case Reps/Minutes x10 each way thoracic rotation Sitting Exercise Name open book Reps/Minutes 1x10 Other Exercises cat cow Reps/Minutes x10 Manual Therapy Treatment Joint Mobilizations PA thoracic mobs Joint thoracic Direction PA Grade IV Body Position Prone Manual Techniques cervical isometrics Type cervical isometrics against manual resistance Body Location cervical Body Position Sitting Reps/Duration x30'' Comments flexion, extension, lateral flexion, rotation PT-OP-T Assessment and Plan Start: 12/10/22 13:23 Freq: Status: Active Protocol: Document 01/15/23 15:55 ED (Rec: 01/15/23 16:03 ED [id number]) Physical Therapy Assessment Goals Four Impairment % improvement Short Term Goal (STG) Pt will report 25% improvement in neck and back pain during occupational and recreational activities. STG Duration 3 weeks Custodial Goal (LTG) Pt will report 50% ipmrovement in neck and back pain during occupational and recreational activities. LTG Duration 6-8 weeks Three Impairment strength Short Term Goal (STG) Pt will improve cervical strength via MMT to 4/5 in all planes of motion. STG Duration 3 weeks Custodial Goal (LTG) Pt will improve cervical strength via MMT to 5/5 in all planes of motion. LTG Duration 6-8 weeks Two Impairment ROM Short Term Goal (STG) Pt will improve cervical rotation to 45 degrees bilaterally STG Duration 3 weeks -NOT MET Assistant Art Director Goal (LTG) Pt will improve cervical rotation to 65 degrees bilaterally. LTG Duration 6 weeks HEP Impairment HEP Short Term Goal (STG) Pt will report performing HEP 3-5 days/week. STG Duration 2 weeks -MET Custodial Goal (LTG) Pt will report performing HEP 3-5 days/week. LTG Duration 6 weeks Progress Towards Goals Progress Towards Goals Progressing Toward Goals Assessment Summary Assessment Pt completed Oswestry Low Back Pain questionnaire today and has a score improvement of 80% impaired to 50% impaired meeting criteria for MDIC. Pt continues to be very limited in cervical ROM with rotation of 20-30 degrees bilaterally and extension of ~10-15 degrees. Pt has improved in cervical flexion but otherwise minimal changes in rotation and extension. Physical Therapy Plan Frequency and Duration Frequency of Treatment 2x/Week Duration of treatment (weeks) 10 Plan of Care Start Date 12/10/22 Plan of Care End Date 03/10/23 Next Visit Focus/Plan Next Note Type Treatment Note Next Visit Plan TM, open books, cat camel, neck isometrics, SNAGs, PB rolls, press up, cervical manual?, prone hip extension c / PB
--- NOTE | 2023-01-19 08:23 | PT.OTN ---
Current Diagnoses Spinal stenosis, lumbar region without neurogenic claudication (01/19/23) Radiculopathy, lumbar region (01/19/23) Sciatica, right side (01/19/23) Physical Therapy Treatment Note PT-OP-A Visit Information Start: 12/10/22 13:23 Freq: Status: Active Protocol: Document 01/19/23 08:17 ED (Rec: 01/19/23 08:23 ED [id number]) Out-Patient Physical Therapy Visit Information Visit Information Visit Type Treatment Note Visit Note 05/12 Visit Start Time 07:30 Visit Stop Time 08:15 Total Visit Minutes 45 Visit Number 11 PT-OP-B Current Condition Start: 12/10/22 13:23 Freq: Status: Active Protocol: Document 12/10/22 13:23 ED (Rec: 12/10/22 13:40 ED [id number]) Current Condition History of Current Condition Onset Date October 30, 2022 Current Complaints neck pain History of Current Condition 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 He later went to the ER d/t the amount of pain. He states that his pain is less now but he still has constant pain that limits him. He states that he has difficulty c/ neck movements and is very limited in his ROM . Denies any problems with his arms and shoulders now. MRI revealed degenerative changes. PT-OP-C Subjective Start: 12/10/22 13:23 Freq: Status: Active Protocol: Document 01/19/23 08:17 ED (Rec: 01/19/23 08:23 ED [id number]) OP-PT Subjective Patient Comments Patient Comments Pt went swimming over the weekend and did some stretches while in the pool. He is going to try to go again. Patient Questionnaires Neck Disability Index NDI Score 20 / 50 = 40.0 % Neck Disability Index Impairment 40 to 59% Impaired (Score 20- 29) PT-OP-K Range of Motion Start: 12/10/22 13:23 Freq: Status: Active Protocol: Document 01/15/23 15:55 ED (Rec: 01/15/23 16:03 ED [id number]) Cervical Spine Range of Motion Cervical Spine Active Testing Position Sitting Flexion 30 Extension 15 Rotation Left 20 Rotation Right 30 PT-OP-L Special Tests Start: 12/10/22 13:23 Freq: Status: Active Protocol: Document 12/10/22 13:23 ED (Rec: 12/10/22 13:40 ED [id number]) Special Tests Cervical Spine Special Tests Foraminal Compression Test Results + PT-OP-M Strength Start: 12/10/22 13:23 Freq: Status: Active Protocol: Document 12/10/22 13:23 ED (Rec: 12/10/22 13:40 ED [id number]) Cervical Spine Strength Cervical Spine Manual Muscle Testing Flexion (C1-2) 3- Fair- Extension 4 Good Rotation Left 3- Fair- Rotation Right 3- Fair- PT-OP-Q Treatments Start: 12/10/22 13:23 Freq: Status: Active Protocol: Document 01/19/23 08:17 ED (Rec: 01/19/23 08:23 ED [id number]) Cardio Equipment Treadmill Duration (Minutes) 8 Speed 2.5 Incline 3.0 Other @ beginning Therapeutic Exercises Supine Exercises LTR Reps/Minutes 2x10 cervical rotation Supine Exercise Name quadruped + chin tuck Reps/Minutes [address] Prone Exercises noemi pose Reps/Minutes x10 press up Reps/Minutes x10 Sitting Exercises Ruben curl Sitting Exercise Name ruben curl Resistance L4 Equipment Used cable on floor Reps/Minutes 6b00-06 cervical SNAGs Side bilateral Equipment Used pillow case Reps/Minutes 2x[address] thoracic rotation Sitting Exercise Name seated w/ overpressure assist Reps/Minutes 2x6-8/side Other Exercises cat cow Reps/Minutes x10 Manual Therapy Treatment Manual Techniques cervical isometrics Type cervical isometrics against manual resistance Body Location cervical Body Position Sitting Reps/Duration x30'' Comments flexion, extension, lateral flexion, rotation PT-OP-T Assessment and Plan Start: 12/10/22 13:23 Freq: Status: Active Protocol: Document 01/19/23 08:17 ED (Rec: 01/19/23 08:23 ED [id number]) Physical Therapy Assessment Goals Four Impairment % improvement Short Term Goal (STG) Pt will report 25% improvement in neck and back pain during occupational and recreational activities. STG Duration 3 weeks Airplane Tester Goal (LTG) Pt will report 50% ipmrovement in neck and back pain during occupational and recreational activities. LTG Duration 6-8 weeks Three Impairment strength Short Term Goal (STG) Pt will improve cervical strength via MMT to 4/5 in all planes of motion. STG Duration 3 weeks Senior Living Goal (LTG) Pt will improve cervical strength via MMT to 5/5 in all planes of motion. LTG Duration 6-8 weeks Two Impairment ROM Short Term Goal (STG) Pt will improve cervical rotation to 45 degrees bilaterally STG Duration 3 weeks -NOT MET Airplane Tester Goal (LTG) Pt will improve cervical rotation to 65 degrees bilaterally. LTG Duration 6 weeks HEP Impairment HEP Short Term Goal (STG) Pt will report performing HEP 3-5 days/week. STG Duration 2 weeks -MET Senior Living Goal (LTG) Pt will report performing HEP 3-5 days/week. LTG Duration 6 weeks Assessment Summary Assessment Pt performed a high volume of mobility and ROM drills for cervicothoracic spine. Pt slowly demonstrated increased ROM as session progressed. Continues to be very limited in cervical rotation ROM; pain is guarded during some drills but is showing improvement in that as well. NDI score improved 5 points since patient filled it out originally. Physical Therapy Plan Frequency and Duration Frequency of Treatment 2x/Week Duration of treatment (weeks) 10 Plan of Care Start Date 12/10/22 Plan of Care End Date 03/10/23 Next Visit Focus/Plan Next Note Type Treatment Note Next Visit Plan TM, open books, thread the needle cat camel, neck isometrics, SNAGs, PB rolls, press up, cervical extension isometric, bent over row,
--- NOTE | 2023-01-21 08:17 | PT.OTN ---
Current Diagnoses Spinal stenosis, lumbar region without neurogenic claudication (01/21/23) Radiculopathy, lumbar region (01/21/23) Sciatica, right side (01/21/23) Physical Therapy Treatment Note PT-OP-A Visit Information Start: 12/10/22 13:23 Freq: Status: Active Protocol: Document 01/21/23 08:13 ED (Rec: 01/21/23 08:17 ED [id number]) Out-Patient Physical Therapy Visit Information Visit Information Visit Type Treatment Note Visit Note 06/12 Visit Start Time 07:35 Visit Stop Time 08:15 Total Visit Minutes 40 Visit Number 12 PT-OP-B Current Condition Start: 12/10/22 13:23 Freq: Status: Active Protocol: Document 12/10/22 13:23 ED (Rec: 12/10/22 13:40 ED [id number]) Current Condition History of Current Condition Onset Date October 30, 2022 Current Complaints neck pain History of Current Condition 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 He later went to the ER d/t the amount of pain. He states that his pain is less now but he still has constant pain that limits him. He states that he has difficulty c/ neck movements and is very limited in his ROM . Denies any problems with his arms and shoulders now. MRI revealed degenerative changes. PT-OP-C Subjective Start: 12/10/22 13:23 Freq: Status: Active Protocol: Document 01/21/23 08:13 ED (Rec: 01/21/23 08:17 ED [id number]) OP-PT Subjective Patient Comments Patient Comments Pt states that his low back is feeling much better and he is having less muscle spasms now . His neck pain is maybe a little bit improved. PT-OP-K Range of Motion Start: 12/10/22 13:23 Freq: Status: Active Protocol: Document 01/15/23 15:55 ED (Rec: 01/15/23 16:03 ED [id number]) Cervical Spine Range of Motion Cervical Spine Active Testing Position Sitting Flexion 30 Extension 15 Rotation Left 20 Rotation Right 30 PT-OP-L Special Tests Start: 12/10/22 13:23 Freq: Status: Active Protocol: Document 12/10/22 13:23 ED (Rec: 12/10/22 13:40 ED [id number]) Special Tests Cervical Spine Special Tests Foraminal Compression Test Results + PT-OP-M Strength Start: 12/10/22 13:23 Freq: Status: Active Protocol: Document 12/10/22 13:23 ED (Rec: 12/10/22 13:40 ED [id number]) Cervical Spine Strength Cervical Spine Manual Muscle Testing Flexion (C1-2) 3- Fair- Extension 4 Good Rotation Left 3- Fair- Rotation Right 3- Fair- PT-OP-Q Treatments Start: 12/10/22 13:23 Freq: Status: Active Protocol: Document 01/21/23 08:13 ED (Rec: 01/21/23 08:17 ED [id number]) Cardio Equipment Treadmill Duration (Minutes) 8 Speed 2.5 Incline 3.0 Other @ beginning Therapeutic Exercises Supine Exercises LTR Reps/Minutes 2x10 PB rolls Reps/Minutes 2x20 Prone Exercises press up Reps/Minutes x10 Sitting Exercises cervical isometrics Sitting Exercise Name flexion, extension, side bend, rotation isometric Reps/Minutes x30'' ea cervical extension Sitting Exercise Name ext isometric against ball Reps/Minutes 2x10 x3'' hold lumbar flexoin Sitting Exercise Name PB lumbar flexion Reps/Minutes 2x10 cervical SNAGs Side bilateral Equipment Used pillow case Reps/Minutes 2x[address] Standing Exercises lat pull down Resistance L5 Equipment Used cable Comments with hip extension in sitting PT-OP-T Assessment and Plan Start: 12/10/22 13:23 Freq: Status: Active Protocol: Document 01/21/23 08:13 ED (Rec: 01/21/23 08:17 ED [id number]) Physical Therapy Assessment Goals Four Impairment % improvement Short Term Goal (STG) Pt will report 25% improvement in neck and back pain during occupational and recreational activities. STG Duration 3 weeks Organ Fixer Goal (LTG) Pt will report 50% ipmrovement in neck and back pain during occupational and recreational activities. LTG Duration 6-8 weeks Three Impairment strength Short Term Goal (STG) Pt will improve cervical strength via MMT to 4/5 in all planes of motion. STG Duration 3 weeks Skilled Nursing Goal (LTG) Pt will improve cervical strength via MMT to 5/5 in all planes of motion. LTG Duration 6-8 weeks Two Impairment ROM Short Term Goal (STG) Pt will improve cervical rotation to 45 degrees bilaterally STG Duration 3 weeks -NOT MET Skilled Nursing Goal (LTG) Pt will improve cervical rotation to 65 degrees bilaterally. LTG Duration 6 weeks HEP Impairment HEP Short Term Goal (STG) Pt will report performing HEP 3-5 days/week. STG Duration 2 weeks -MET Organ Fixer Goal (LTG) Pt will report performing HEP 3-5 days/week. LTG Duration 6 weeks Assessment Summary Assessment Pt demonstrating less apprehension when performing exercises for low back pain. Contines to be very limited in his cervical ROM but seems to improve as the session continues. Physical Therapy Plan Next Visit Focus/Plan Next Note Type Treatment Note Next Visit Plan TM, open books, thread the needle cat camel, neck isometrics, SNAGs, PB rolls, press up, cervical extension isometric, bent over row,
--- NOTE | 2023-01-26 09:48 | PT.OTN ---
Current Diagnoses Spinal stenosis, lumbar region without neurogenic claudication (01/26/23) Radiculopathy, lumbar region (01/26/23) Sciatica, right side (01/26/23) Physical Therapy Treatment Note PT-OP-A Visit Information Start: 12/10/22 13:23 Freq: Status: Active Protocol: Document 01/26/23 09:44 ED (Rec: 01/26/23 09:48 ED [id number]) Out-Patient Physical Therapy Visit Information Visit Information Visit Type Treatment Note Visit Note 07/10 Visit Start Time 09:00 Visit Stop Time 09:45 Total Visit Minutes 45 Visit Number 13 PT-OP-B Current Condition Start: 12/10/22 13:23 Freq: Status: Active Protocol: Document 12/10/22 13:23 ED (Rec: 12/10/22 13:40 ED [id number]) Current Condition History of Current Condition Onset Date October 30, 2022 Current Complaints neck pain History of Current Condition 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 He later went to the ER d/t the amount of pain. He states that his pain is less now but he still has constant pain that limits him. He states that he has difficulty c/ neck movements and is very limited in his ROM . Denies any problems with his arms and shoulders now. MRI revealed degenerative changes. PT-OP-C Subjective Start: 12/10/22:23 Freq: Status: Active Protocol: Document 01/26/23 09:44 ED (Rec: 01/26/23 09:48 ED [id number]) OP-PT Subjective Patient Comments Patient Comments Pt states that his neck and back are feeling better and better. He notes less apprehension when getting in/ out of his car or performing daily activities. Does still have pain at times however. PT-OP-K Range of Motion Start: 12/10/22 13:23 Freq: Status: Active Protocol: Document 01/15/23 15:55 ED (Rec: 01/15/23 16:03 ED [id number]) Cervical Spine Range of Motion Cervical Spine Active Testing Position Sitting Flexion 30 Extension 15 Rotation Left 20 Rotation Right 30 PT-OP-L Special Tests Start: 12/10/22 13:23 Freq: Status: Active Protocol: Document 12/10/22 13:23 ED (Rec: 12/10/22 13:40 ED [id number]) Special Tests Cervical Spine Special Tests Foraminal Compression Test Results + PT-OP-M Strength Start: 12/10/22 13:23 Freq: Status: Active Protocol: Document 12/10/22 13:23 ED (Rec: 12/10/22 13:40 ED [id number]) Cervical Spine Strength Cervical Spine Manual Muscle Testing Flexion (C1-2) 3- Fair- Extension 4 Good Rotation Left 3- Fair- Rotation Right 3- Fair- PT-OP-Q Treatments Start: 12/10/22 13:23 Freq: Status: Active Protocol: Document 01/26/23 09:44 ED (Rec: 01/26/23 09:48 ED [id number]) Cardio Equipment Treadmill Duration (Minutes) 8 Speed 2.5 Incline 3.0 Other @ beginning Therapeutic Exercises Supine Exercises LTR Reps/Minutes 2x10 PB rolls Reps/Minutes 2x20 bridge Reps/Minutes 3x10 Comments hands under buttocks to decrease pain Prone Exercises press up Reps/Minutes x10 Sitting Exercises cervical isometrics Sitting Exercise Name flexion, extension, side bend, rotation isometric Reps/Minutes x30'' ea lumbar flexoin Sitting Exercise Name PB lumbar flexion Reps/Minutes 2x10 cervical SNAGs Side bilateral Equipment Used pillow case Reps/Minutes 2x[address] way Therapeutic Activity Therapeutic Activity bent over row Reps/Minutes 3x5-10 reps Comments 10# weighted dowel; required intermittent rest breaks d/t low back fatigue PT-OP-T Assessment and Plan Start: 12/10/22 13:23 Freq: Status: Active Protocol: Document 01/26/23 09:44 ED (Rec: 01/26/23 09:48 ED [id number]) Physical Therapy Assessment Goals Four Impairment % improvement Short Term Goal (STG) Pt will report 25% improvement in neck and back pain during occupational and recreational activities. STG Duration 3 weeks Senior Living Goal (LTG) Pt will report 50% ipmrovement in neck and back pain during occupational and recreational activities. LTG Duration 6-8 weeks Three Impairment strength Short Term Goal (STG) Pt will improve cervical strength via MMT to 4/5 in all planes of motion. STG Duration 3 weeks Senior Living Goal (LTG) Pt will improve cervical strength via MMT to 5/5 in all planes of motion. LTG Duration 6-8 weeks Two Impairment ROM Short Term Goal (STG) Pt will improve cervical rotation to 45 degrees bilaterally STG Duration 3 weeks -NOT MET Refrigeration Installer Goal (LTG) Pt will improve cervical rotation to 65 degrees bilaterally. LTG Duration 6 weeks HEP Impairment HEP Short Term Goal (STG) Pt will report performing HEP 3-5 days/week. STG Duration 2 weeks -MET Refrigeration Installer Goal (LTG) Pt will report performing HEP 3-5 days/week. LTG Duration 6 weeks Assessment Summary Assessment Pt showing more ROM with less overall pain during ROM drills in thoracolumbar spine. Continues to be limited in cervical spine ROM. He is sensitive to lumbar extension but has demonstrating improvements. Is also limited in exercises that demand musculature lumbar extension such as bridges and bent over rows. Physical Therapy Plan Frequency and Duration Frequency of Treatment 2x/Week Duration of treatment (weeks) 10 Plan of Care Start Date 12/10/22 Plan of Care End Date 03/10/23 Next Visit Focus/Plan Next Note Type Treatment Note Next Visit Plan TM, open books, thread the needle cat camel, bridge, neck isometrics, SNAGs, PB rolls, press up, cervical extension isometric, bent over row,
--- NOTE | 2023-01-28 09:55 | PT.OTN ---
Current Diagnoses Spinal stenosis, lumbar region without neurogenic claudication (01/28/23) Radiculopathy, lumbar region (01/28/23) Sciatica, right side (01/28/23) Physical Therapy Treatment Note PT-OP-A Visit Information Start: 12/10/22 13:23 Freq: Status: Active Protocol: Document 01/28/23 09:50 ED (Rec: 01/28/23 09:55 ED [id number]) Out-Patient Physical Therapy Visit Information Visit Information Visit Type Treatment Note Visit Note 08/10 Visit Start Time 09:15 Visit Stop Time 09:45 Total Visit Minutes 30 Visit Number 14 PT-OP-B Current Condition Start: 12/10/22 13:23 Freq: Status: Active Protocol: Document 12/10/22 13:23 ED (Rec: 12/10/22 13:40 ED [id number]) Current Condition History of Current Condition Onset Date October 30, 2022 Current Complaints neck pain History of Current Condition 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 He later went to the ER d/t the amount of pain. He states that his pain is less now but he still has constant pain that limits him. He states that he has difficulty c/ neck movements and is very limited in his ROM . Denies any problems with his arms and shoulders now. MRI revealed degenerative changes. PT-OP-C Subjective Start: 12/10/22 13:23 Freq: Status: Active Protocol: Document 01/28/23 09:50 ED (Rec: 01/28/23 09:55 ED [id number]) OP-PT Subjective Patient Comments Patient Comments Pt apologizes for being late to PT today. States he may return to work and doing modified-duty. PT-OP-K Range of Motion Start: 12/10/22 13:23 Freq: Status: Active Protocol: Document 01/15/23 15:55 ED (Rec: 01/15/23 16:03 ED [id number]) Cervical Spine Range of Motion Cervical Spine Active Testing Position Sitting Flexion 30 Extension 15 Rotation Left 20 Rotation Right 30 PT-OP-L Special Tests Start: 12/10/22 13:23 Freq: Status: Active Protocol: Document 12/10/22 13:23 ED (Rec: 12/10/22 13:40 ED [id number]) Special Tests Cervical Spine Special Tests Foraminal Compression Test Results + PT-OP-M Strength Start: 12/10/22 13:23 Freq: Status: Active Protocol: Document 12/10/22 13:23 ED (Rec: 12/10/22 13:40 ED [id number]) Cervical Spine Strength Cervical Spine Manual Muscle Testing Flexion (C1-2) 3- Fair- Extension 4 Good Rotation Left 3- Fair- Rotation Right 3- Fair- PT-OP-Q Treatments Start: 12/10/22 13:23 Freq: Status: Active Protocol: Document 01/28/23 09:50 ED (Rec: 01/28/23 09:55 ED [id number]) Therapeutic Exercises Supine Exercises sciatic nerve glides Reps/Minutes x10-15 PB rolls Reps/Minutes 2x20 Sitting Exercises cervical isometrics Sitting Exercise Name flexion, extension, side bend, rotation isometric Reps/Minutes x30'' ea cervical extension Sitting Exercise Name ext isometric against ball Reps/Minutes 2x10 x3'' hold PB bounces Reps/Minutes x2 minutes thoracic rotation Sitting Exercise Name seated Reps/Minutes 2x6-8/side Other Exercises bent over hip extensoin Reps/Minutes 3x10 Therapeutic Activity Therapeutic Activity squat Name STS low bench Reps/Minutes 3x15 Comments 10# PT-OP-T Assessment and Plan Start: 12/10/22 13:23 Freq: Status: Active Protocol: Document 01/28/23 09:50 ED (Rec: 01/28/23 09:55 ED [id number]) Physical Therapy Assessment Goals Four Impairment % improvement Short Term Goal (STG) Pt will report 25% improvement in neck and back pain during occupational and recreational activities. STG Duration 3 weeks Custodial Goal (LTG) Pt will report 50% ipmrovement in neck and back pain during occupational and recreational activities. LTG Duration 6-8 weeks Three Impairment strength Short Term Goal (STG) Pt will improve cervical strength via MMT to 4/5 in all planes of motion. STG Duration 3 weeks Custodial Goal (LTG) Pt will improve cervical strength via MMT to 5/5 in all planes of motion. LTG Duration 6-8 weeks Two Impairment ROM Short Term Goal (STG) Pt will improve cervical rotation to 45 degrees bilaterally STG Duration 3 weeks -NOT MET Custodial Goal (LTG) Pt will improve cervical rotation to 65 degrees bilaterally. LTG Duration 6 weeks HEP Impairment HEP Short Term Goal (STG) Pt will report performing HEP 3-5 days/week. STG Duration 2 weeks -MET Hospital Receiving Clerk Goal (LTG) Pt will report performing HEP 3-5 days/week. LTG Duration 6 weeks Assessment Summary Assessment Abbreviated session today d/t patient arriving late. Worked on thoracolumbar flexibility and isolation of lumbar extensors. Pt has repeatedly demonstrated weakness in lumbar extensors in both strength and muscle endurance. Will continue to try and improve those in future sessions. Physical Therapy Plan Frequency and Duration Frequency of Treatment 2x/Week Duration of treatment (weeks) 10 Plan of Care Start Date 12/10/22 Plan of Care End Date 03/10/23 Next Visit Focus/Plan Next Note Type Treatment Note Next Visit Plan TM, open books, thread the needle cat camel, bridge, neck isometrics, SNAGs, PB rolls, press up, cervical extension isometric, bent over row,
--- NOTE | 2023-02-02 09:45 | PT.OTN ---
Current Diagnoses Spinal stenosis, lumbar region without neurogenic claudication (02/02/23) Radiculopathy, lumbar region (02/02/23) Sciatica, right side (02/02/23) Physical Therapy Treatment Note PT-OP-A Visit Information Start: 12/10/22 13:23 Freq: Status: Active Protocol: Document 02/02/23 09:42 ED (Rec: 02/02/23 09:45 ED [id number]) Out-Patient Physical Therapy Visit Information Visit Information Visit Type Treatment Note Visit Note 09/09 Visit Start Time 09:00 Visit Stop Time 09:45 Total Visit Minutes 45 Visit Number 15 PT-OP-B Current Condition Start: 12/10/22 13:23 Freq: Status: Active Protocol: Document 12/10/22 13:23 ED (Rec: 12/10/22 13:40 ED [id number]) Current Condition History of Current Condition Onset Date October 30, 2022 Current Complaints neck pain History of Current Condition 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 He later went to the ER d/t the amount of pain. He states that his pain is less now but he still has constant pain that limits him. He states that he has difficulty c/ neck movements and is very limited in his ROM . Denies any problems with his arms and shoulders now. MRI revealed degenerative changes. PT-OP-C Subjective Start: 12/10/22:23 Freq: Status: Active Protocol: Document 02/02/23 09:42 ED (Rec: 02/02/23 09:45 ED [id number]) OP-PT Subjective Patient Comments Patient Comments Pt states that his back and neck are feeling a lot better. he finds that he has apprehension with some activities just b/c he has been in pain so long but he's happy b/c he can get in/out of his car now with minimal back pain. PT-OP-K Range of Motion Start: 12/10/22 13:23 Freq: Status: Active Protocol: Document 01/15/23 15:55 ED (Rec: 01/15/23 16:03 ED [id number]) Cervical Spine Range of Motion Cervical Spine Active Testing Position Sitting Flexion 30 Extension 15 Rotation Left 20 Rotation Right 30 PT-OP-L Special Tests Start: 12/10/22 13:23 Freq: Status: Active Protocol: Document 12/10/22 13:23 ED (Rec: 12/10/22 13:40 ED [id number]) Special Tests Cervical Spine Special Tests Foraminal Compression Test Results + PT-OP-M Strength Start: 12/10/22 13:23 Freq: Status: Active Protocol: Document 12/10/22 13:23 ED (Rec: 12/10/22 13:40 ED [id number]) Cervical Spine Strength Cervical Spine Manual Muscle Testing Flexion (C1-2) 3- Fair- Extension 4 Good Rotation Left 3- Fair- Rotation Right 3- Fair- PT-OP-Q Treatments Start: 12/10/22 13:23 Freq: Status: Active Protocol: Document 02/02/23 09:42 ED (Rec: 02/02/23 09:45 ED [id number]) Cardio Equipment Treadmill Duration (Minutes) 8 Speed 2.5 Incline 3.0 Other @ beginning Therapeutic Exercises Supine Exercises LTR Reps/Minutes 2x10 bridge Supine Exercise Name bridge, elevated bridge, straight leg bridge Reps/Minutes 3x10 Comments hands under buttocks to decrease pain Sitting Exercises cervical isometrics Sitting Exercise Name flexion, extension, side bend, rotation isometric Reps/Minutes x30'' ea cervical extension Sitting Exercise Name ext isometric against ball Reps/Minutes 2x10 x3'' hold Ruben curl Sitting Exercise Name ruben curl Resistance L4 Equipment Used cable on floor Reps/Minutes [id number] lumbar flexoin Sitting Exercise Name PB lumbar flexion Reps/Minutes 2x10 Other Exercises bent over hip extensoin Reps/Minutes 3x10 kneeling rotation Other Exercise Name 1/2 kneeling t-spine rotation Reps/Minutes x10 ea Therapeutic Activity Therapeutic Activity squat Name STS low bench Reps/Minutes 3x15 Comments arms hanging squat 20# PT-OP-T Assessment and Plan Start: 12/10/22 13:23 Freq: Status: Active Protocol: Document 02/02/23 09:42 ED (Rec: 02/02/23 09:45 ED [id number]) Physical Therapy Assessment Goals Four Impairment % improvement Short Term Goal (STG) Pt will report 25% improvement in neck and back pain during occupational and recreational activities. STG Duration 3 weeks Snf Goal (LTG) Pt will report 50% ipmrovement in neck and back pain during occupational and recreational activities. LTG Duration 6-8 weeks Three Impairment strength Short Term Goal (STG) Pt will improve cervical strength via MMT to 4/5 in all planes of motion. STG Duration 3 weeks Fuels Sales Representative Goal (LTG) Pt will improve cervical strength via MMT to 5/5 in all planes of motion. LTG Duration 6-8 weeks Two Impairment ROM Short Term Goal (STG) Pt will improve cervical rotation to 45 degrees bilaterally STG Duration 3 weeks -NOT MET Fuels Sales Representative Goal (LTG) Pt will improve cervical rotation to 65 degrees bilaterally. LTG Duration 6 weeks HEP Impairment HEP Short Term Goal (STG) Pt will report performing HEP 3-5 days/week. STG Duration 2 weeks -MET Fuels Sales Representative Goal (LTG) Pt will report performing HEP 3-5 days/week. LTG Duration 6 weeks Assessment Summary Assessment Pt doing well in regards to nearly painfree mobility. Pt demonstrating weakness in lumbar extensors as seen during modified deadlifts and bent over hip extension. Physical Therapy Plan Frequency and Duration Frequency of Treatment 2x/Week Duration of treatment (weeks) 10 Plan of Care Start Date 12/10/22 Plan of Care End Date 03/10/23 Next Visit Focus/Plan Next Note Type Treatment Note Next Visit Plan TM, open books, thread the needle cat camel, bridge, neck isometrics, SNAGs, PB rolls, press up, cervical extension isometric, bent over row,
--- NOTE | 2023-02-04 09:46 | PT.OTN ---
Current Diagnoses Spinal stenosis, lumbar region without neurogenic claudication (02/04/23) Radiculopathy, lumbar region (02/04/23) Sciatica, right side (02/04/23) Physical Therapy Treatment Note PT-OP-A Visit Information Start: 12/10/22:23 Freq: Status: Active Protocol: Document 02/04/23 09:41 ED (Rec: 02/04/23 09:46 ED [id number]) Out-Patient Physical Therapy Visit Information Visit Information Visit Type Treatment Note Visit Note 10/10 Visit Start Time 09:00 Visit Stop Time 09:45 Total Visit Minutes 45 Visit Number 16 PT-OP-B Current Condition Start: 12/10/22:23 Freq: Status: Active Protocol: Document 12/10/22:23 ED (Rec: 12/10/22 13:40 ED [id number]) Current Condition History of Current Condition Onset Date October 30, 2022 Current Complaints neck pain History of Current Condition 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 He later went to the ER d/t the amount of pain. He states that his pain is less now but he still has constant pain that limits him. He states that he has difficulty c/ neck movements and is very limited in his ROM . Denies any problems with his arms and shoulders now. MRI revealed degenerative changes. PT-OP-C Subjective Start: 12/10/22:23 Freq: Status: Active Protocol: Document 02/04/23 09:41 ED (Rec: 02/04/23 09:46 ED [id number]) OP-PT Subjective Patient Comments Patient Comments Pt states he has a new PCP and wants to ask for radiographs for his neck. His neck and back feel better but is concerned b/c they're always stiff. PT-OP-K Range of Motion Start: 12/10/22:23 Freq: Status: Active Protocol: Document 02/04/23 09:41 ED (Rec: 02/04/23 09:46 ED [id number]) Cervical Spine Range of Motion Cervical Spine Active Rotation Left 40 Rotation Right 40 PT-OP-L Special Tests Start: 12/10/22:23 Freq: Status: Active Protocol: Document 12/10/22 13:23 ED (Rec: 12/10/22 13:40 ED [id number]) Special Tests Cervical Spine Special Tests Foraminal Compression Test Results + PT-OP-M Strength Start: 12/10/22:23 Freq: Status: Active Protocol: Document 12/10/22 13:23 ED (Rec: 12/10/22 13:40 ED [id number]) Cervical Spine Strength Cervical Spine Manual Muscle Testing Flexion (C1-2) 3- Fair- Extension 4 Good Rotation Left 3- Fair- Rotation Right 3- Fair- PT-OP-Q Treatments Start: 12/10/22 13:23 Freq: Status: Active Protocol: Document 02/04/23 09:41 ED (Rec: 02/04/23 09:46 ED [id number]) Cardio Equipment Treadmill Duration (Minutes) 8 Speed 2.5 Incline 3.0 Other @ beginning Therapeutic Exercises Supine Exercises cervical rotation Supine Exercise Name SNAGs, AROM Reps/Minutes 2x10 ea Sitting Exercises cervical isometrics Sitting Exercise Name flexion, extension, side bend, rotation isometric Reps/Minutes x30'' ea thoracic rotation Sitting Exercise Name seated Reps/Minutes 2x6-8/side Standing Exercises bent over row Standing Exercise Name dowel Resistance 15# Reps/Minutes 3x10 shoulder shrug Standing Exercise Name dowel Resistance 15# Reps/Minutes 3x10 PT-OP-T Assessment and Plan Start: 12/10/22 13:23 Freq: Status: Active Protocol: Document 02/04/23 09:41 ED (Rec: 02/04/23 09:46 ED [id number]) Physical Therapy Assessment Goals Four Impairment % improvement Short Term Goal (STG) Pt will report 25% improvement in neck and back pain during occupational and recreational activities. STG Duration 3 weeks Cake Cutter Machine Goal (LTG) Pt will report 50% ipmrovement in neck and back pain during occupational and recreational activities. LTG Duration 6-8 weeks Three Impairment strength Short Term Goal (STG) Pt will improve cervical strength via MMT to 4/5 in all planes of motion. STG Duration 3 weeks Retirement Goal (LTG) Pt will improve cervical strength via MMT to 5/5 in all planes of motion. LTG Duration 6-8 weeks Two Impairment ROM Short Term Goal (STG) Pt will improve cervical rotation to 45 degrees bilaterally STG Duration 3 weeks -NOT MET Retirement Goal (LTG) Pt will improve cervical rotation to 65 degrees bilaterally. LTG Duration 6 weeks HEP Impairment HEP Short Term Goal (STG) Pt will report performing HEP 3-5 days/week. STG Duration 2 weeks -MET Cake Cutter Machine Goal (LTG) Pt will report performing HEP 3-5 days/week. LTG Duration 6 weeks Assessment Summary Assessment Pt neck rotation measured at 40 degrees bilaterally today which is about 20 degree improvement since start of PT. he continues to show marked lack of mobility in neck with some pain throughout range. Session focused on high volume of cervicothoracic drills especially into rotation. Pt improving in muscular endurance strength in low back extensors as he was able to perform bent over rows 3x10 c/ o requiring rest breaks between reps. Physical Therapy Plan Frequency and Duration Frequency of Treatment 2x/Week Duration of treatment (weeks) 10 Plan of Care Start Date 12/10/22 Plan of Care End Date 03/10/23 Next Visit Focus/Plan Next Note Type Treatment Note Next Visit Plan TM, open books, thread the needle cat camel, kyrgyz plank, neck isometrics, SNAGs, PB rolls, bent over row , press up, cervical extension isometric, bent over row,
--- NOTE | 2023-02-09 09:45 | PT.OTN ---
Current Diagnoses Spinal stenosis, lumbar region without neurogenic claudication (02/09/23) Radiculopathy, lumbar region (02/09/23) Sciatica, right side (02/09/23) Physical Therapy Treatment Note PT-OP-A Visit Information Start: 12/10/22 13:23 Freq: Status: Active Protocol: Document 02/09/23 09:42 ED (Rec: 02/09/23 09:45 ED [id number]) Out-Patient Physical Therapy Visit Information Visit Information Visit Type Treatment Note Visit Note 11/09 Visit Start Time 09:00 Visit Stop Time 09:45 Total Visit Minutes 45 Visit Number 17 PT-OP-B Current Condition Start: 12/10/22:23 Freq: Status: Active Protocol: Document 12/10/22:23 ED (Rec: 12/10/22 13:40 ED [id number]) Current Condition History of Current Condition Onset Date October 30, 2022 Current Complaints neck pain History of Current Condition 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 He later went to the ER d/t the amount of pain. He states that his pain is less now but he still has constant pain that limits him. He states that he has difficulty c/ neck movements and is very limited in his ROM . Denies any problems with his arms and shoulders now. MRI revealed degenerative changes. PT-OP-C Subjective Start: 12/10/22:23 Freq: Status: Active Protocol: Document 02/09/23 09:42 ED (Rec: 02/09/23 09:45 ED [id number]) OP-PT Subjective Patient Comments Patient Comments Pt states that his neck has more ROM. His back and neck are overall feeling less painful but still very stiff and can be painful in particular positions. PT-OP-K Range of Motion Start: 12/10/22 13:23 Freq: Status: Active Protocol: Document 02/04/23 09:41 ED (Rec: 02/04/23 09:46 ED [id number]) Cervical Spine Range of Motion Cervical Spine Active Rotation Left 40 Rotation Right 40 PT-OP-L Special Tests Start: 12/10/22:23 Freq: Status: Active Protocol: Document 12/10/22 13:23 ED (Rec: 12/10/22 13:40 ED [id number]) Special Tests Cervical Spine Special Tests Foraminal Compression Test Results + PT-OP-M Strength Start: 12/10/22 13:23 Freq: Status: Active Protocol: Document 12/10/22 13:23 ED (Rec: 12/10/22 13:40 ED [id number]) Cervical Spine Strength Cervical Spine Manual Muscle Testing Flexion (C1-2) 3- Fair- Extension 4 Good Rotation Left 3- Fair- Rotation Right 3- Fair- PT-OP-Q Treatments Start: 12/10/22 13:23 Freq: Status: Active Protocol: Document 02/04/23 09:41 ED (Rec: 02/04/23 09:46 ED [id number]) Cardio Equipment Treadmill Duration (Minutes) 8 Speed 2.5 Incline 3.0 Other @ beginning Therapeutic Exercises Supine Exercises cervical rotation Supine Exercise Name SNAGs, AROM Reps/Minutes 2x10 ea Sitting Exercises cervical isometrics Sitting Exercise Name flexion, extension, side bend, rotation isometric Reps/Minutes x30'' ea thoracic rotation Sitting Exercise Name seated Reps/Minutes 2x6-8/side Standing Exercises bent over row Standing Exercise Name dowel Resistance 15# Reps/Minutes 3x10 shoulder shrug Standing Exercise Name dowel Resistance 15# Reps/Minutes 3x10 PT-OP-T Assessment and Plan Start: 12/10/22 13:23 Freq: Status: Active Protocol: Document 02/09/23 09:42 ED (Rec: 02/09/23 09:45 ED [id number]) Physical Therapy Assessment Goals Four Impairment % improvement Short Term Goal (STG) Pt will report 25% improvement in neck and back pain during occupational and recreational activities. STG Duration 3 weeks Fdc Goal (LTG) Pt will report 50% ipmrovement in neck and back pain during occupational and recreational activities. LTG Duration 6-8 weeks Three Impairment strength Short Term Goal (STG) Pt will improve cervical strength via MMT to 4/5 in all planes of motion. STG Duration 3 weeks Fdc Goal (LTG) Pt will improve cervical strength via MMT to 5/5 in all planes of motion. LTG Duration 6-8 weeks Two Impairment ROM Short Term Goal (STG) Pt will improve cervical rotation to 45 degrees bilaterally STG Duration 3 weeks -NOT MET Fdc Goal (LTG) Pt will improve cervical rotation to 65 degrees bilaterally. LTG Duration 6 weeks HEP Impairment HEP Short Term Goal (STG) Pt will report performing HEP 3-5 days/week. STG Duration 2 weeks -MET Fdc Goal (LTG) Pt will report performing HEP 3-5 days/week. LTG Duration 6 weeks Assessment Summary Assessment Worked on cervical and thoracolumbar ROM followed by strengthening for low back. Pt improving in spinal ROM with less pain overall throughout session. Continues to show decreased lumbar extensor strength and endurance but it is slowly improving. Physical Therapy Plan Frequency and Duration Frequency of Treatment 2x/Week Duration of treatment (weeks) 10 Plan of Care Start Date 12/10/22 Plan of Care End Date 03/10/23 Next Visit Focus/Plan Next Note Type Treatment Note Next Visit Plan TM, open books, thread the needle cat camel, hungarian plank, neck isometrics, SNAGs, PB rolls, bent over row , press up, cervical extension isometric, bent over row,
--- NOTE | 2023-02-11 09:45 | PT.OTN ---
Current Diagnoses Spinal stenosis, lumbar region without neurogenic claudication (02/11/23) Radiculopathy, lumbar region (02/11/23) Sciatica, right side (02/11/23) Physical Therapy Treatment Note PT-OP-A Visit Information Start: 12/10/22 13:23 Freq: Status: Active Protocol: Document 02/11/23 09:40 ED (Rec: 02/11/23 09:45 ED [id number]) Out-Patient Physical Therapy Visit Information Visit Information Visit Type Treatment Note Visit Note 12/10 Visit Start Time 09:00 Visit Stop Time 09:40 Total Visit Minutes 40 Visit Number 18 PT-OP-B Current Condition Start: 12/10/22 13:23 Freq: Status: Active Protocol: Document 12/10/22:23 ED (Rec: 12/10/22 13:40 ED [id number]) Current Condition History of Current Condition Onset Date October 30, 2022 Current Complaints neck pain History of Current Condition 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 He later went to the ER d/t the amount of pain. He states that his pain is less now but he still has constant pain that limits him. He states that he has difficulty c/ neck movements and is very limited in his ROM . Denies any problems with his arms and shoulders now. MRI revealed degenerative changes. PT-OP-C Subjective Start: 12/10/22:23 Freq: Status: Active Protocol: Document 02/11/23 09:40 ED (Rec: 02/11/23 09:45 ED [id number]) OP-PT Subjective Patient Comments Patient Comments Pt states he is always a little worried of hurting his back so that impacts how he moves during his daily activities. PT-OP-K Range of Motion Start: 12/10/22 13:23 Freq: Status: Active Protocol: Document 02/04/23 09:41 ED (Rec: 02/04/23 09:46 ED [id number]) Cervical Spine Range of Motion Cervical Spine Active Rotation Left 40 Rotation Right 40 PT-OP-L Special Tests Start: 12/10/22:23 Freq: Status: Active Protocol: Document 12/10/22 13:23 ED (Rec: 12/10/22 13:40 ED [id number]) Special Tests Cervical Spine Special Tests Foraminal Compression Test Results + PT-OP-M Strength Start: 12/10/22 13:23 Freq: Status: Active Protocol: Document 12/10/22 13:23 ED (Rec: 12/10/22 13:40 ED [id number]) Cervical Spine Strength Cervical Spine Manual Muscle Testing Flexion (C1-2) 3- Fair- Extension 4 Good Rotation Left 3- Fair- Rotation Right 3- Fair- PT-OP-Q Treatments Start: 12/10/22 13:23 Freq: Status: Active Protocol: Document 02/11/23 09:40 ED (Rec: 02/11/23 09:45 ED [id number]) Cardio Equipment Treadmill Duration (Minutes) 8 Speed 2.5 Incline 3.0 Other @ beginning Therapeutic Exercises Supine Exercises LTR Reps/Minutes x10 Sidelying Exercises side plank Sidelying Exercise Name side plank Reps/Minutes x30'' Sitting Exercises lumbar flexoin Sitting Exercise Name PB lumbar flexion Equipment Used PB` Reps/Minutes 3x10 cervical SNAGs Resistance pillowcase Reps/Minutes 2x10 Standing Exercises lat pull down Standing Exercise Name lat pull down Resistance l4 Equipment Used cable Reps/Minutes 3x10 Other Exercises ball drop Other Exercise Name standing ball drop (eccentric catch) Equipment Used 3# Reps/Minutes 1x10 kneeling rotation Other Exercise Name standing med ball lateral toss Resistance 3# Reps/Minutes 2x10 Therapeutic Activity Therapeutic Activity hinge Name RDL Reps/Minutes 3x10 Comments 10# c/ dowel PT-OP-T Assessment and Plan Start: 12/10/22 13:23 Freq: Status: Active Protocol: Document 02/11/23 09:40 ED (Rec: 02/11/23 09:45 ED [id number]) Physical Therapy Assessment Goals Four Impairment % improvement Short Term Goal (STG) Pt will report 25% improvement in neck and back pain during occupational and recreational activities. STG Duration 3 weeks Flight Reservations Manager Goal (LTG) Pt will report 50% ipmrovement in neck and back pain during occupational and recreational activities. LTG Duration 6-8 weeks Three Impairment strength Short Term Goal (STG) Pt will improve cervical strength via MMT to 4/5 in all planes of motion. STG Duration 3 weeks Flight Reservations Manager Goal (LTG) Pt will improve cervical strength via MMT to 5/5 in all planes of motion. LTG Duration 6-8 weeks Two Impairment ROM Short Term Goal (STG) Pt will improve cervical rotation to 45 degrees bilaterally STG Duration 3 weeks -NOT MET Detention Goal (LTG) Pt will improve cervical rotation to 65 degrees bilaterally. LTG Duration 6 weeks HEP Impairment HEP Short Term Goal (STG) Pt will report performing HEP 3-5 days/week. STG Duration 2 weeks -MET Detention Goal (LTG) Pt will report performing HEP 3-5 days/week. LTG Duration 6 weeks Assessment Summary Assessment Pt performed a few new exerices including RDLs, side plank, lateral ball toss, and eccentric ball catch. Pt able to do them all comfortably but did have slight irritation during lateral ball tosses. Pt hesitant to perform eccentric ball drops d/t fear of causing injury but he was able to do it well. Physical Therapy Plan Frequency and Duration Frequency of Treatment 2x/Week Duration of treatment (weeks) 10 Plan of Care Start Date 12/10/22 Plan of Care End Date 03/10/23 Next Visit Focus/Plan Next Note Type Treatment Note Next Visit Plan TM, open books, thread the needle cat camel, faroese plank, neck isometrics, SNAGs, PB rolls, bent over row, ball drop , press up, cervical extension isometric, bent over row,
--- NOTE | 2023-02-16 09:54 | PT.OTN ---
Current Diagnoses Spinal stenosis, lumbar region without neurogenic claudication (02/16/23) Radiculopathy, lumbar region (02/16/23) Sciatica, right side (02/16/23) Physical Therapy Treatment Note PT-OP-A Visit Information Start: 12/10/22 13:23 Freq: Status: Active Protocol: Document 02/16/23 09:48 ED (Rec: 02/16/23 09:54 ED [id number]) Out-Patient Physical Therapy Visit Information Visit Information Visit Type Treatment Note Visit Note 01/10 Visit Start Time 09:00 Visit Stop Time 19:45 Total Visit Minutes 45 Visit Number 19 PT-OP-B Current Condition Start: 12/10/22 13:23 Freq: Status: Active Protocol: Document 12/10/22 13:23 ED (Rec: 12/10/22 13:40 ED [id number]) Current Condition History of Current Condition Onset Date October 30, 2022 Current Complaints neck pain History of Current Condition 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 He later went to the ER d/t the amount of pain. He states that his pain is less now but he still has constant pain that limits him. He states that he has difficulty c/ neck movements and is very limited in his ROM . Denies any problems with his arms and shoulders now. MRI revealed degenerative changes. PT-OP-C Subjective Start: 12/10/22 13:23 Freq: Status: Active Protocol: Document 02/16/23 09:48 ED (Rec: 02/16/23 09:54 ED [id number]) OP-PT Subjective Patient Comments Patient Comments Pt states he has a meeting with his PCP this Wednesday. He wants imaging for his back b/c it continues to be painful especially in particular positions. PT-OP-K Range of Motion Start: 12/10/22 13:23 Freq: Status: Active Protocol: Document 02/04/23 09:41 ED (Rec: 02/04/23 09:46 ED [id number]) Cervical Spine Range of Motion Cervical Spine Active Rotation Left 40 Rotation Right 40 PT-OP-L Special Tests Start: 12/10/22 13:23 Freq: Status: Active Protocol: Document 12/10/22 13:23 ED (Rec: 12/10/22 13:40 ED [id number]) Special Tests Cervical Spine Special Tests Foraminal Compression Test Results + PT-OP-M Strength Start: 12/10/22: Freq: Status: Active Protocol: Document 12/10/22 13:23 ED (Rec: 12/10/22 13:40 ED [id number]) Cervical Spine Strength Cervical Spine Manual Muscle Testing Flexion (C1-2) 3- Fair- Extension 4 Good Rotation Left 3- Fair- Rotation Right 3- Fair- PT-OP-Q Treatments Start: 12/10/22 13:23 Freq: Status: Active Protocol: Document 02/16/23 09:48 ED (Rec: 02/16/23 09:54 ED [id number]) Cardio Equipment Treadmill Duration (Minutes) 8 Speed 2.5 Incline 3.0 Other @ beginning Therapeutic Exercises Prone Exercises press up Prone Exercise Name press up Reps/Minutes x60 second hold Comments on elbows Sitting Exercises Ruben curl Resistance L3 Equipment Used cable column Reps/Minutes 2x10 lumbar flexoin Sitting Exercise Name PB lumbar flexion Equipment Used PB` Reps/Minutes 3x10 cervical SNAGs Resistance pillowcase Reps/Minutes 2x10 Standing Exercises bent over row Standing Exercise Name dowel Resistance 10# Reps/Minutes 3x15 Comments 30'' rest between sets child pose <> hip extension Reps/Minutes 3x10 Other Exercises ball drop Other Exercise Name standing ball drop (eccentric catch) Equipment Used 3# Reps/Minutes 2x10 PT-OP-T Assessment and Plan Start: 12/10/22 13:23 Freq: Status: Active Protocol: Document 02/16/23 09:48 ED (Rec: 02/16/23 09:54 ED [id number]) Physical Therapy Assessment Goals Four Impairment % improvement Short Term Goal (STG) Pt will report 25% improvement in neck and back pain during occupational and recreational activities. STG Duration 3 weeks Alf Goal (LTG) Pt will report 50% ipmrovement in neck and back pain during occupational and recreational activities. LTG Duration 6-8 weeks Three Impairment strength Short Term Goal (STG) Pt will improve cervical strength via MMT to 4/5 in all planes of motion. STG Duration 3 weeks Radiation Oncology Nurse Goal (LTG) Pt will improve cervical strength via MMT to 5/5 in all planes of motion. LTG Duration 6-8 weeks Two Impairment ROM Short Term Goal (STG) Pt will improve cervical rotation to 45 degrees bilaterally STG Duration 3 weeks -NOT MET Radiation Oncology Nurse Goal (LTG) Pt will improve cervical rotation to 65 degrees bilaterally. LTG Duration 6 weeks HEP Impairment HEP Short Term Goal (STG) Pt will report performing HEP 3-5 days/week. STG Duration 2 weeks -MET Radiation Oncology Nurse Goal (LTG) Pt will report performing HEP 3-5 days/week. LTG Duration 6 weeks Assessment Summary Assessment Pt demonstrating limitations in lumbar extension and cervical extension. Flexion looks good for both of those areas. Rotation is improving but continues to be sensitive for him. Pt imprvoing in thoracolumbar extension muscular endurance as he was able to perform bent over row without rest breaks for sets of 15. Physical Therapy Plan Frequency and Duration Frequency of Treatment 2x/Week Duration of treatment (weeks) 10 Plan of Care Start Date 12/10/22 Plan of Care End Date 03/10/23 Next Visit Focus/Plan Next Note Type Progress Note Next Visit Plan check ROM, Oswestry, NDI
--- NOTE | 2023-02-18 09:56 | PT.OPPN ---
Current Diagnoses Spinal stenosis, lumbar region without neurogenic claudication (02/18/23) Radiculopathy, lumbar region (02/18/23) Sciatica, right side (02/18/23) Physical Therapy Progress Note PT-OP-A Visit Information Start: 12/10/22 13:23 Freq: Status: Active Protocol: Document 02/18/23 09:47 ED (Rec: 02/18/23 09:55 ED [id number]) Out-Patient Physical Therapy Visit Information Visit Information Visit Type Progress Note Visit Note 02/09 Visit Start Time 09:00 Visit Stop Time 09:45 Total Visit Minutes 45 Visit Number 20 PT-OP-B Current Condition Start: 12/10/22 13:23 Freq: Status: Active Protocol: Document 02/18/23 09:47 ED (Rec: 02/18/23 09:55 ED [id number]) Current Condition History of Current Condition Onset Date October 30, 2022 Current Complaints neck pain & low back pain History of Current Condition 02/18: Pt feels like he has made some improvements in neck and back pain since starting PT. he notes he is less apprehensive to do activities and movements at home. He also is not having muscle spasms anymore and the pain is no longer constant or as intense. However, he still feels really stiff and is not able to do some recreational activities like he used to such as basketball and hiking. 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 He later went to the ER d/t the amount of pain. He states that his pain is less now but he still has constant pain that limits him. He states that he has difficulty c/ neck movements and is very limited in his ROM . Denies any problems with his arms and shoulders now. MRI revealed degenerative changes. PT-OP-C Subjective Start: 12/10/22 13:23 Freq: Status: Active Protocol: Document 02/18/23 09:47 ED (Rec: 02/18/23 09:55 ED [id number]) Patient Questionnaires Neck Disability Index NDI Score 27 / 50 = 54.0 % Neck Disability Index Impairment 40 to 59% Impaired (Score 20- 29) Oswestry Low Back Index Oswestry Score 26 / 50 = 52.0 % Oswestry Impairment 40 to 59% Impaired (Score 40- 59) PT-OP-K Range of Motion Start: 12/10/22:23 Freq: Status: Active Protocol: Document 02/18/23 09:47 ED (Rec: 02/18/23 09:55 ED [id number]) Cervical Spine Range of Motion Cervical Spine Active Testing Position Sitting Flexion 35 Extension 25 Rotation Left 20 Rotation Right 35 PT-OP-L Special Tests Start: 12/10/22:23 Freq: Status: Active Protocol: Document 12/10/22 13:23 ED (Rec: 12/10/22 13:40 ED [id number]) Special Tests Cervical Spine Special Tests Foraminal Compression Test Results + PT-OP-M Strength Start: 12/10/22:23 Freq: Status: Active Protocol: Document 12/10/22 13:23 ED (Rec: 12/10/22 13:40 ED [id number]) Cervical Spine Strength Cervical Spine Manual Muscle Testing Flexion (C1-2) 3- Fair- Extension 4 Good Rotation Left 3- Fair- Rotation Right 3- Fair- PT-OP-T Assessment and Plan Start: 12/10/22:23 Freq: Status: Active Protocol: Document 02/18/23 09:47 ED (Rec: 02/18/23 09:55 ED [id number]) Physical Therapy Assessment Goals Four Impairment % improvement Short Term Goal (STG) Pt will report 25% improvement in neck and back pain during occupational and recreational activities. STG Duration 3 weeks -MET [facility]ci Goal (LTG) Pt will report 50% ipmrovement in neck and back pain during occupational and recreational activities. LTG Duration 6-8 weeks -MET Three Impairment strength Short Term Goal (STG) Pt will improve cervical strength via MMT to 4/5 in all planes of motion. STG Duration 3 weeks City Letter Carrier Goal (LTG) Pt will improve cervical strength via MMT to 5/5 in all planes of motion. LTG Duration 6-8 weeks Two Impairment ROM Short Term Goal (STG) Pt will improve cervical rotation to 45 degrees bilaterally STG Duration 3 weeks -NOT MET City Letter Carrier Goal (LTG) Pt will improve cervical rotation to 65 degrees bilaterally. LTG Duration 6 weeks HEP Impairment HEP Short Term Goal (STG) Pt will report performing HEP 3-5 days/week. STG Duration 2 weeks -MET City Letter Carrier Goal (LTG) Pt will report performing HEP 3-5 days/week. LTG Duration 6 weeks Progress Towards Goals Progress Towards Goals Progressing Toward Goals Assessment Summary Assessment Pt has now come to 20 PT appointments for management of his low back pain and neck pain. He has reported improvements in overall pain levels and ability to perform daily functional acitivites. His NDI (neck disability index ) and Oswestry low back pain questionnaires are relatively unchanged since his last progress note 1 month ago. His ROM is slightly improved but continues to be very limited. Pt has 4 more PT visits scheduled before being discharged. I anticipate mild - modest improvements will continue to happen but it appears that the age related changes in his cervical spine and lumbar spine will continue to leave patient with limited ROM and pain. PT will continue to educate patient on disease process and lifestyle adaptations to consider making. Physical Therapy Plan Frequency and Duration Frequency of Treatment 2x/Week Duration of treatment (weeks) 3 Plan of Care Start Date 02/18/23 Plan of Care End Date 03/12/23 Therapeutic Interventions Therapeutic Interventions Joint Mobilizations,Manual Therapy,Taping,Therapeutic Activities,Therapeutic Exercises Next Visit Focus/Plan Next Note Type Progress Note Next Visit Plan check ROM, Oswestry, NDI
--- NOTE | 2023-02-18 09:56 | PT.OPPOC ---
Physical, Occupational & Speech Therapy At [facility] Current Diagnoses Spinal stenosis, lumbar region without neurogenic claudication (02/18/23) Radiculopathy, lumbar region (02/18/23) Sciatica, right side (02/18/23) Visit Care Team Role Provider Type Doctor MD Elvia Primary Care Provider Non-Staff Specialty: Medical Address: Phone: Fax: Email: Du Rodríguez PA-C Attending Provider Advanced Mate Chief Referring Provider Specialty: Orthopedics Orthopedic Surgery Address: [address] [place] [address], [id number] Email: [email or web address] Plan Of Care PT-OP-T Assessment and Plan Start: 12/10/22 13:23 Freq: Status: Active Protocol: Document 02/18/23 09:47 ED (Rec: 02/18/23 09:55 ED [id number]) Physical Therapy Assessment Goals Four Impairment % improvement Short Term Goal (STG) Pt will report 25% improvement in neck and back pain during occupational and recreational activities. STG Duration 3 weeks -MET Educational Therapist Goal (LTG) Pt will report 50% ipmrovement in neck and back pain during occupational and recreational activities. LTG Duration 6-8 weeks -MET Three Impairment strength Short Term Goal (STG) Pt will improve cervical strength via MMT to 4/5 in all planes of motion. STG Duration 3 weeks Assisted Goal (LTG) Pt will improve cervical strength via MMT to 5/5 in all planes of motion. LTG Duration 6-8 weeks Two Impairment ROM Short Term Goal (STG) Pt will improve cervical rotation to 45 degrees bilaterally STG Duration 3 weeks -NOT MET Educational Therapist Goal (LTG) Pt will improve cervical rotation to 65 degrees bilaterally. LTG Duration 6 weeks HEP Impairment HEP Short Term Goal (STG) Pt will report performing HEP 3-5 days/week. STG Duration 2 weeks -MET Educational Therapist Goal (LTG) Pt will report performing HEP 3-5 days/week. LTG Duration 6 weeks Progress Towards Goals Progress Towards Goals Progressing Toward Goals Assessment Summary Assessment Pt has now come to 20 PT appointments for management of his low back pain and neck pain. He has reported improvements in overall pain levels and ability to perform daily functional acitivites. His NDI (neck disability index ) and Oswestry low back pain questionnaires are relatively unchanged since his last progress note 1 month ago. His ROM is slightly improved but continues to be very limited. Pt has 4 more PT visits scheduled before being discharged. I anticipate mild - modest improvements will continue to happen but it appears that the age related changes in his cervical spine and lumbar spine will continue to leave patient with limited ROM and pain. PT will continue to educate patient on disease process and lifestyle adaptations to consider making. Physical Therapy Plan Frequency and Duration Frequency of Treatment 2x/Week Duration of treatment (weeks) 3 Plan of Care Start Date 02/18/23 Plan of Care End Date 03/12/23 Therapeutic Interventions Therapeutic Interventions Joint Mobilizations,Manual Therapy,Taping,Therapeutic Activities,Therapeutic Exercises Next Visit Focus/Plan Next Note Type Progress Note Next Visit Plan check ROM, Oswestry, NDI Plan of Care Dates Plan of Care Start Date 02/18/23 Plan of Care End Date 03/12/23 Electronically Signed by: Terry Ventura, PT 02/18/23 0956 If you are in agreement with this Plan of Care, please return a signed and dated copy. I have reviewed this Plan of Care and certify that the skilled therapy services above are required to meet the patient?s needs. Physician Signature Date Printed Name and Credentials Clinical Instructor Signature Printed Name and Credentials
--- NOTE | 2023-02-25 09:45 | PT.OTN ---
Current Diagnoses Spinal stenosis, lumbar region without neurogenic claudication (02/25/23) Radiculopathy, lumbar region (02/25/23) Sciatica, right side (02/25/23) Physical Therapy Treatment Note PT-OP-A Visit Information Start: 12/10/22 13:23 Freq: Status: Active Protocol: Document 02/25/23 09:42 ED (Rec: 02/25/23 09:45 ED [id number]) Out-Patient Physical Therapy Visit Information Visit Information Visit Type Treatment Note Visit Note 05/12 Visit Start Time 09:00 Visit Stop Time 09:40 Total Visit Minutes 40 Visit Number 21 PT-OP-B Current Condition Start: 12/10/22 13:23 Freq: Status: Active Protocol: Document 02/18/23 09:47 ED (Rec: 02/18/23 09:55 ED [id number]) Current Condition History of Current Condition Onset Date October 30, 2022 Current Complaints neck pain & low back pain History of Current Condition 02/18: Pt feels like he has made some improvements in neck and back pain since starting PT. he notes he is less apprehensive to do activities and movements at home. He also is not having muscle spasms anymore and the pain is no longer constant or as intense. However, he still feels really stiff and is not able to do some recreational activities like he used to such as basketball and hiking. 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 He later went to the ER d/t the amount of pain. He states that his pain is less now but he still has constant pain that limits him. He states that he has difficulty c/ neck movements and is very limited in his ROM . Denies any problems with his arms and shoulders now. MRI revealed degenerative changes. PT-OP-C Subjective Start: 12/10/22 13:23 Freq: Status: Active Protocol: Document 02/25/23 09:42 ED (Rec: 02/25/23 09:45 ED [id number]) OP-PT Subjective Patient Comments Patient Comments Pt states that his neck and back do in fact feel about 80% better. He doesn't like how stiff his neck feels though and wonders why it's so restricted. PT-OP-K Range of Motion Start: 12/10/22 13:23 Freq: Status: Active Protocol: Document 02/18/23 09:47 ED (Rec: 02/18/23 09:55 ED [id number]) Cervical Spine Range of Motion Cervical Spine Active Testing Position Sitting Flexion 35 Extension 25 Rotation Left 20 Rotation Right 35 PT-OP-L Special Tests Start: 12/10/22 13:23 Freq: Status: Active Protocol: Document 12/10/22 13:23 ED (Rec: 12/10/22 13:40 ED [id number]) Special Tests Cervical Spine Special Tests Foraminal Compression Test Results + PT-OP-M Strength Start: 12/10/22 13:23 Freq: Status: Active Protocol: Document 12/10/22 13:23 ED (Rec: 12/10/22 13:40 ED [id number]) Cervical Spine Strength Cervical Spine Manual Muscle Testing Flexion (C1-2) 3- Fair- Extension 4 Good Rotation Left 3- Fair- Rotation Right 3- Fair- PT-OP-Q Treatments Start: 12/10/22 13:23 Freq: Status: Active Protocol: Document 02/25/23 09:42 ED (Rec: 02/25/23 09:45 ED [id number]) Therapeutic Exercises Prone Exercises press up Prone Exercise Name press up Reps/Minutes x60 second hold Comments on elbows Sidelying Exercises open book Reps/Minutes x10 each way Sitting Exercises cervical SNAGs Resistance pillowcase Reps/Minutes 2x10 Standing Exercises bent over row Standing Exercise Name dowel Resistance 10# Reps/Minutes 3x15 Comments 30'' rest between sets PT-OP-T Assessment and Plan Start: 12/10/22 13:23 Freq: Status: Active Protocol: Document 02/25/23 09:42 ED (Rec: 02/25/23 09:45 ED [id number]) Physical Therapy Assessment Goals Four Impairment % improvement Short Term Goal (STG) Pt will report 25% improvement in neck and back pain during occupational and recreational activities. STG Duration 3 weeks -MET Aerospace Stress Engineer Goal (LTG) Pt will report 50% ipmrovement in neck and back pain during occupational and recreational activities. LTG Duration 6-8 weeks -MET Three Impairment strength Short Term Goal (STG) Pt will improve cervical strength via MMT to 4/5 in all planes of motion. STG Duration 3 weeks Aerospace Stress Engineer Goal (LTG) Pt will improve cervical strength via MMT to 5/5 in all planes of motion. LTG Duration 6-8 weeks Two Impairment ROM Short Term Goal (STG) Pt will improve cervical rotation to 45 degrees bilaterally STG Duration 3 weeks -NOT MET Halfway Goal (LTG) Pt will improve cervical rotation to 65 degrees bilaterally. LTG Duration 6 weeks HEP Impairment HEP Short Term Goal (STG) Pt will report performing HEP 3-5 days/week. STG Duration 2 weeks -MET Aerospace Stress Engineer Goal (LTG) Pt will report performing HEP 3-5 days/week. LTG Duration 6 weeks Assessment Summary Assessment Pt continues to display restricted cervical especially into rotation and extension. These restrictions are likely secondary to age related changes to spinal structure. It is a relatively firm-hard end feel when placed at end ROM. PT and patient discussed this today and patient is understanding that his ROM may not improve at this point but is happy that his pain is better now. Physical Therapy Plan Frequency and Duration Frequency of Treatment 2x/Week Duration of treatment (weeks) 3 Plan of Care Start Date 02/18/23 Plan of Care End Date 03/12/23 Therapeutic Interventions Therapeutic Interventions Joint Mobilizations,Manual Therapy,Taping,Therapeutic Activities,Therapeutic Exercises Next Visit Focus/Plan Next Note Type Treatment Note Next Visit Plan TM, mobility, shrugs, lat pull down, prayer stretch
--- NOTE | 2023-03-09 11:24 | PT.OPDS ---
Current Diagnoses Spinal stenosis, lumbar region without neurogenic claudication (02/25/23) Radiculopathy, lumbar region (02/25/23) Sciatica, right side (02/25/23) Visit Care Team Role Provider Type Doctor MD Elvia Primary Care Provider Non-Staff Specialty: Medical Address: Phone: Fax: Email: Du Rodríguez PA-C Attending Provider Advanced Sap Plant Maintenance Consultant Referring Provider Specialty: Orthopedics Orthopedic Surgery Address: [address] [place] [address], [place], [address] Email: [email or web address] Visit Number Visit Number 21 Discharge Summary PT-OP-B Current Condition Start: 12/10/22 13:23 Freq: Status: Active Protocol: Document 02/18/23 09:47 ED (Rec: 02/18/23 09:55 ED [id number]) Current Condition History of Current Condition Onset Date October 30, 2022 Current Complaints neck pain & low back pain History of Current Condition 02/18: Pt feels like he has made some improvements in neck and back pain since starting PT. he notes he is less apprehensive to do activities and movements at home. He also is not having muscle spasms anymore and the pain is no longer constant or as intense. However, he still feels really stiff and is not able to do some recreational activities like he used to such as basketball and hiking. 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 He later went to the ER d/t the amount of pain. He states that his pain is less now but he still has constant pain that limits him. He states that he has difficulty c/ neck movements and is very limited in his ROM . Denies any problems with his arms and shoulders now. MRI revealed degenerative changes. PT-OP-C Subjective Start: 12/10/22 13:23 Freq: Status: Active Protocol: Document 02/25/23 09:42 ED (Rec: 02/25/23 09:45 ED [id number]) OP-PT Subjective Patient Comments Patient Comments Pt states that his neck and back do in fact feel about 80% better. He doesn't like how stiff his neck feels though and wonders why it's so restricted. PT-OP-K Range of Motion Start: 12/10/22 13:23 Freq: Status: Active Protocol: Document 02/18/23 09:47 ED (Rec: 02/18/23 09:55 ED [id number]) Cervical Spine Range of Motion Cervical Spine Active Testing Position Sitting Flexion 35 Extension 25 Rotation Left 20 Rotation Right 35 PT-OP-L Special Tests Start: 12/10/22 13:23 Freq: Status: Active Protocol: Document 12/10/22 13:23 ED (Rec: 12/10/22 13:40 ED [id number]) Special Tests Cervical Spine Special Tests Foraminal Compression Test Results + PT-OP-M Strength Start: 12/10/22 13:23 Freq: Status: Active Protocol: Document 12/10/22 13:23 ED (Rec: 12/10/22 13:40 ED [id number]) Cervical Spine Strength Cervical Spine Manual Muscle Testing Flexion (C1-2) 3- Fair- Extension 4 Good Rotation Left 3- Fair- Rotation Right 3- Fair- PT-OP-T Assessment and Plan Start: 12/10/22 13:23 Freq: Status: Active Protocol: Document 03/09/23 11:21 ED (Rec: 03/09/23 11:24 ED [id number]) Physical Therapy Assessment Goals Four Impairment % improvement Short Term Goal (STG) Pt will report 25% improvement in neck and back pain during occupational and recreational activities. STG Duration 3 weeks -MET Coating Machine Helper Goal (LTG) Pt will report 50% ipmrovement in neck and back pain during occupational and recreational activities. LTG Duration 6-8 weeks -MET Three Impairment strength Short Term Goal (STG) Pt will improve cervical strength via MMT to 4/5 in all planes of motion. STG Duration 3 weeks Care Home Goal (LTG) Pt will improve cervical strength via MMT to 5/5 in all planes of motion. LTG Duration 6-8 weeks Two Impairment ROM Short Term Goal (STG) Pt will improve cervical rotation to 45 degrees bilaterally STG Duration 3 weeks -NOT MET Coating Machine Helper Goal (LTG) Pt will improve cervical rotation to 65 degrees bilaterally. LTG Duration 6 weeks HEP Impairment HEP Short Term Goal (STG) Pt will report performing HEP 3-5 days/week. STG Duration 2 weeks -MET Coating Machine Helper Goal (LTG) Pt will report performing HEP 3-5 days/week. LTG Duration 6 weeks Progress Towards Goals Progress Towards Goals Slow Progress - Other Assessment Summary Assessment Patient will be discharged from PT at this time; patient came to 21 appointments. Pt had relatively modest improvements in cervical ROM. However, he did have improvements in pain in cervical region and low back. PT incorporated a wide array of ROM and strengthening exercises for patient that were progressed/regressed according to patient's abilities and pain response.
== END 2023-03-11 14:47 | disposition home or self-care (01) ==
LOC: PHYS 09:00
PROVIDERS: Absent Provider Physician Assistant Medical; Referring Provider Physician Assistant Medical; Visit Provider Physician Assistant Medical
DX: M54.16 Radiculopathy, lumbar region (principal); M48.061 Spinal stenosis, lumbar region without neurogenic claudication; M54.31 Sciatica, right side
CPT/HCPCS: 97110; 97140; 97162; 97530